=== PATIENT | female | born 1930 | race Caucasian/White ===

== ENCOUNTER 2018-10-20 15:17 | Emergency (ER) | payer MEDICARE ==
[2018-10-20 15:25] VITALS: TEMP 98.3
--- NOTE | 2018-10-20 15:44 | XR ---
EXAMINATION TYPE: XR chest 2V DATE OF EXAM: 10/20/2018 COMPARISON: 12/01/2015 TECHNIQUE: PA and lateral views submitted. HISTORY: Cough FINDINGS: The lungs are clear and there is no pneumothorax, pleural effusion, or focal pneumonia. Curvature t he spine with postsurgical changes involving the mediastinum. Degenerative changes of the spine. Surg ical clips in the abdomen. No overt failure. Arthropathy of the shoulders. Biapical pleural thickenin g. IMPRESSION: 1. No acute process.
[2018-10-20] MEDS ORDERED: IPRATROPIUM-ALBUTEROL 3 ML NEB INHALATION STA (16:26)
[2018-10-20] MEDS ORDERED: SODIUM CHLORIDE 0.9% 500 ML 500 ML IV STA ×2 (16:26→17:47)
[2018-10-20] MEDS ORDERED: methylPREDNISolone SOD SUCCI 125 MG/2 ML VIAL IV STA (16:27)
--- NOTE | 2018-10-20 16:27 | ED ---
General Adult HPI - General Chief complaint: Upper Respiratory Infection Stated complaint: Cough Time Seen by Provider: 10/20/18 16:16 Source: patient, RN notes reviewed Mode of arrival: ambulatory Limitations: no limitations - History of Present Illness Initial comments: 87-year-old female with a past medical history of hypertension, hypercholesterolemia, hypothyroidism, left bundle branch block, kidney disease presents to the emergency department for a chief complaint of cough 3 days. Patient has been having a nonproductive cough. Feels like she is wheezing. Denies COPD or asthma. Denies significant smoking history. Patient also complains of congestion. No fevers or chills. Admits to some mild chest pain only when coughing. Admits to mild baseline shortness of breath at this time. Some minor weakness noted as well but patient is getting around her house fine. Patient has no other complaints at this time including chest pain, abdominal pain, nausea or vomiting, headache, or visual changes. - Related Data Home Medications Medication Instructions Recorded Confirmed Aspirin EC [Ecotrin Low Dose] 81 mg PO DAILY 10/20/18 10/20/18 Brinzolamide/Brimonidine Tart 1 drop BOTH EYES BID 10/20/18 10/20/18 [Simbrinza 1%-0.2% Eye Drops] Etanercept [Enbrel] 50 mg SQ WESA 10/20/18 10/20/18 Lansoprazole [Prevacid] 15 mg PO DAILY 10/20/18 10/20/18 Latanoprost/Pf [Latanoprost 0.005% 1 drop BOTH EYES QAM 10/20/18 10/20/18 Eye Drop] Memantine [Namenda] 10 mg PO BID 10/20/18 10/20/18 Metoprolol Succinate [Toprol XL] 75 mg PO DAILY 10/20/18 10/20/18 Potassium Chloride [Klor-Con 10] 10 meq PO DAILY 10/20/18 10/20/18 Rosuvastatin [Crestor] 20 mg PO HS 10/20/18 10/20/18 Sertraline [Zoloft] 200 mg PO DAILY 10/20/18 10/20/18 Triamterene-Hctz 37.5-25Mg 0.5 tab PO DAILY 10/20/18 10/20/18 [Maxzide 37.5-25] Previous Rx's Medication Instructions Recorded Albuterol Inhaler [Ventolin Hfa 1 - 2 puff INHALATION Q6HR PRN #1 10/20/18 Inhaler] inhaler predniSONE 50 mg PO DAILY #5 tablet 10/20/18 Allergies Allergy/AdvReac Type Severity Reaction Status Date / Time No Known Allergies Allergy Verified 10/20/18 16:21 Review of Systems ROS Statement: Those systems with pertinent positive or pertinent negative responses have been documented in the HPI. ROS Other: All systems not noted in ROS Statement are negative. Past Medical History Past Medical History: Hypertension Additional Past Medical History / Comment(s): hypercholestremia. hypothyroidism. low potassium. dementia. History of Any Multi-Drug Resistant Organisms: None Reported Past Surgical History: Cholecystectomy, Coronary Bypass/CABG, Hysterectomy Past Psychological History: No Psychological Hx Reported Smoking Status: Never smoker Past Alcohol Use History: None Reported Past Drug Use History: None Reported General Exam Limitations: no limitations General appearance: alert, in no apparent distress Head exam: Present: atraumatic, normocephalic, normal inspection Eye exam: Present: normal appearance, PERRL, EOMI. Absent: scleral icterus, conjunctival injection, periorbital swelling ENT exam: Present: normal exam, normal oropharynx, mucous membranes moist, TM's normal bilaterally, normal external ear exam Neck exam: Present: normal inspection, full ROM. Absent: tenderness, me ningismus, lymphadenopathy Respiratory exam: Present: wheezes (Significant wheezing noted in all lung dover), chest wall tenderness (Mild anterior chest wall tenderness). Absent: respiratory distress, rales, rhonchi, stridor, accessory muscle use Cardiovascular Exam: Present: regular rate, normal rhythm, normal heart sounds. Absent: systolic murmur, diastolic murmur, rubs, gallop, clicks Neurological exam: Present: alert, oriented X3, CN II-XII intact Psychiatric exam: Present: normal affect, normal mood Course Vital Signs 10/20/18 10/20/18 10/20/18 15:19 17:52 17:58 Temperature 98.3 F Pulse Rate 81 82 Respiratory 16 16 Rate Blood Pressure 126/61 O2 Sat by Pulse 95 Oximetry 10/20/18 18:01 Temperature Pulse Rate 88 Respiratory Rate Blood Pressure O2 Sat by Pulse Oximetry Medical Decision Making - Medical Decision Making 87-year-old female presents to the emergency department for a chief complaint of cough. This has been ongoing for 3 days. Mild shortness of breath. Chest pain only when coughing. On exam patient has significant wheezing noted. Vitals are stable, pulse ox 95%. No respiratory distress. CBC unremarkable. Patient does have a platelet count of 75 which is chronic. Creatinine elevated at 1.88, history of chronic kidney disease. Troponin within normal limits. EKG does show a left bundle branch block however this is chronic as patient does have a history of this when asked. Chest x-ray shows no acute process. No evidence of pneumonia. Patient likely has a viral bronchitis. Patient was given breathing treatments and steroids in the emergency department, feeling significantly better. Discussed possibility of admission the patient is requesting to go home. Discussed that I will give her a inhaler as well as steroids and that she should follow up with primary care tomorrow for nebulizer. Discussed returning here if she has any worsening symptoms for admission which she does agree with. - Lab Data Result diagrams: 10/20/18 17:00 10/20/18 17:00 Lab Results 10/20/18 10/20/18 10/20/18 Range/Units 17:00 17:00 17:00 WBC 7.2 (3.8-10.6) k/uL RBC 4.84 (3.80-5.40) m/uL Hgb 12.9 (11.4-16.0) gm/dL Hct 42.4 (34.0-46.0) % MCV 87.6 (80.0-100.0) fL MCH 26.6 (25.0-35.0) pg MCHC 30.3 L (31.0-37.0) g/dL RDW 15.2 (11.5-15.5) % Plt Count 75 L (150-450) k/uL Neutrophils % 81 % Lymphocytes % 11 % Monocytes % 5 % Eosinophils % 1 % Basophils % 0 % Neutrophils # 5.8 (1.3-7.7) k/uL Lymphocytes # 0.8 L (1.0-4.8) k/uL Monocytes # 0.4 (0-1.0) k/uL Eosinophils # 0.1 (0-0.7) k/uL Basophils # 0.0 (0-0.2) k/uL Hypochromasia Slight Sodium 141 (137-145) mmol/L Potassium 3.8 (3.5-5.1) mmol/L Chloride 105 (98-107) mmol/L Carbon Dioxide 24 (22-30) mmol/L Anion Gap 12 mmol/L BUN 33 H (7-17) mg/dL Creatinine 1.88 H (0.52-1.04) mg/dL Est GFR (CKD-EPI)AfAm 27 (>60 ml/min/1.73 sqM) Est GFR (CKD-EPI)NonAf 24 (>60 ml/min/1.73 sqM) Glucose 109 H (74-99) mg/dL Calcium 9.5 (8.4-10.2) mg/dL Magnesium 1.9 (1.6-2.3) mg/dL Total Bilirubin 0.9 (0.2-1.3) mg/dL AST 44 H (14-36) U/L ALT 27 (9-52) U/L Alkaline Phosphatase 94 (38-126) U/L Troponin I 0.019 (0.000-0.034) ng/mL Total Protein 7.8 (6.3-8.2) g/dL Albumin 4.5 (3.5-5.0) g/dL Disposition Clinical Impression: Cough, Bronchitis Disposition: HOME SELF-CARE Condition: Good Instructions (If sedation given, give patient instructions): Acute Bronchitis (ED) Additional Instructions: Please take steroid as directed. Use inhaler. Follow up with primary care in 1-2 days for nebulizer. Return here for any worsening symptoms or worsening shortness of breath. Prescriptions: predniSONE 50 mg PO DAILY #5 tablet Albuterol Inhaler [Ventolin Hfa Inhaler] 1 - 2 puff INHALATION Q6HR PRN #1 inhaler PRN Reason: Shortness Of Breath Is patient prescribed a controlled substance at d/c from ED?: No Referrals: Sarath Verma MD [Primary Care Provider] - 1-2 days Time of Disposition: 18:38
[2018-10-20 17:25] LABS: Basophils % (A) 0 %; Eosinophils # (A) 0.1 k/uL (0-0.7); Eosinophils % (A) 1 %; HCT 42.4 % (34.0-46.0); HGB 12.9 gm/dL (11.4-16.0); Hypochromasia Slight; Lymphocytes # (A) 0.8 k/uL (1.0-4.8); Lymphocytes % (A) 11 %; MCH 26.6 pg (25.0-35.0); MCHC 30.3 g/dL (31.0-37.0); MCV 87.6 fL (80.0-100.0); Mean Platelet Volume 10.6; Monocytes # (A) 0.4 k/uL (0-1.0); Monocytes % (A) 5 %; Neutrophils # (A) 5.8 k/uL (1.3-7.7); Neutrophils % (A) 81 %; Platelet Count 75 k/uL (150-450); RBC 4.84 m/uL (3.80-5.40); RDW 15.2 % (11.5-15.5); WBC 7.2 k/uL (3.8-10.6)
[2018-10-20 17:30] LABS: Albumin 4.5 g/dL (3.5-5.0); Calcium 9.5 mg/dL (8.4-10.2); Magnesium 1.9 mg/dL (1.6-2.3); Potassium 3.8 mmol/L (3.5-5.1); Total Bilirubin 0.9 mg/dL (0.2-1.3); Total Protein 7.8 g/dL (6.3-8.2)
[2018-10-20] MEDS ORDERED: ALBUTEROL NEB (CONC) 2.5 MG/0.5 ML INHALATION STA (17:42)
[2018-10-20 19:16] VITALS: BP 144/66; PULSE 73; RESP 18
== END 2018-10-20 19:14 | disposition home or self-care (01) ==
LOC: EC 15:17
DX: J40 Bronchitis, not specified as acute or chronic (principal); I44.7 Left bundle-branch block, unspecified; I10 Essential (primary) hypertension; Z79.82 Long term (current) use of aspirin; Z79.899 Other long term (current) drug therapy; Z95.1 Presence of aortocoronary bypass graft
CPT/HCPCS: 36415; 94640; 93005; 80053; 83735; 84484; 85025; 71046; 99284; 96374; J2930

== ENCOUNTER 2018-10-25 13:08 | Inpatient (IN) | payer MEDICARE ==
[2018-10-25] MEDS ORDERED: SODIUM CHLORIDE 0.9% 500 ML 500 ML IV STA (14:18)
[2018-10-25] MEDS ORDERED: SODIUM CHLORIDE 0.9% 1,000 ML IV STA (14:18)
--- NOTE | 2018-10-25 14:23 | ED ---
General Adult HPI - General Chief complaint: Fall Stated complaint: Fall Time Seen by Provider: 10/25/18 14:03 Source: patient, family, EMS, RN notes reviewed Mode of arrival: EMS Limitations: no limitations - History of Present Illness Initial comments: Patient is a pleasant 87-year-old female presenting to the emergency department following a fall. Incident occurred yesterday evening. Patient states she lost her balance and fell. Patient was unable to get up on her own. Family is present and helps provide history. They do state the patient does frequently have balance problems and does frequently have problems getting up on her own. Patient was lying on the ground for approximately 13 hours. Last oral intake was around 6:30 PM yesterday. Patient denies any significant injury. Patient has had recent cough and was seen a couple of days ago and diagnosed with bronchitis. Patient has been placed on steroids. Patient denies any head injury or loss of consciousness. Patient denies syncope despite being asked several times. Family members are not as confident About This. - Related Data Home Medications Medication Instructions Recorded Confirmed Aspirin EC [Ecotrin Low Dose] 81 mg PO DAILY 10/20/18 10/25/18 Brinzolamide/Brimonidine Tart 1 drop BOTH EYES BID 10/20/18 10/25/18 [Simbrinza 1%-0.2% Eye Drops] Etanercept [Enbrel] 50 mg SQ WESA 10/20/18 10/25/18 Lansoprazole [Prevacid] 15 mg PO DAILY 10/20/18 10/25/18 Latanoprost/Pf [Latanoprost 0.005% 1 drop BOTH EYES QAM 10/20/18 10/25/18 Eye Drop] Memantine [Namenda] 10 mg PO BID 10/20/18 10/25/18 Metoprolol Succinate [Toprol XL] 75 mg PO DAILY 10/20/18 10/25/18 Potassium Chloride [Klor-Con 10] 10 meq PO DAILY 10/20/18 10/25/18 Rosuvastatin [Crestor] 20 mg PO HS 10/20/18 10/25/18 Sertraline [Zoloft] 200 mg PO DAILY 10/20/18 10/25/18 Triamterene-Hctz 37.5-25Mg 0.5 tab PO DAILY 10/20/18 10/25/18 [Maxzide 37.5-25] Albuterol Inhaler [Ventolin Hfa 1 - 2 puff INHALATION RT-Q6H PRN 10/25/18 10/25/18 Inhaler] Previous Rx's Medication Instructions Recorded predniSONE 50 mg PO DAILY #5 tablet 10/20/18 Allergies Allergy/AdvReac Type Severity Reaction Status Date / Time Iodinated Contrast- Oral and Allergy Dyspnea Verified 10/25/18 13:51 IV Dye acetaminophen AdvReac Unknown Verified 10/25/18 13:51 [From Darvocet-N] cephalexin [From Keflex] AdvReac Unknown Verified 10/25/18 13:51 latex AdvReac Rash/Hives Verified 10/25/18 13:51 propoxyphene AdvReac Unknown Verified 10/25/18 13:51 [From Darvocet-N] Review of Systems ROS Statement: Those systems with pertinent positive or pertinent negative responses have been documented in the HPI. ROS Other: All systems not noted in ROS Statement are negative. Constitutional: Denies: fever Eyes: Denies: eye pain ENT: Denies: ear pain Respiratory: Denies: cough Cardiovascular: Denies: chest pain Endocrine: Reports: fatigue Gastrointestinal: Denies: abdominal pain Genitourinary: Denies: dysuria Musculoskeletal: Denies: back pain Skin: Denies: rash Neurological: Denies: headache, weakness Past Medical History Past Medical History: Hypertension Additional Past Medical History / Comment(s): hypercholestremia. hypothyroidism. low potassium. dementia. History of Any Multi-Drug Resistant Organisms: None Reported Past Surgical History: Cholecystectomy, Coronary Bypass/CABG, Hysterectomy Past Psychological History: No Psychological Hx Reported Smoking Status: Never smoker Past Alcohol Use History: None Reported Past Drug Use History: None Reported General Exam Limitations: no limitations General appearance: alert, in no apparent distress Head exam: Present: atraumatic Eye exam: Present: normal appearance, PERRL ENT exam: Present: normal oropharynx Neck exam: Present: normal inspection. Absent: tenderness Respiratory exam: Present: normal lung sounds bilaterally Cardiovascular Exam: Present: regular rate, normal rhythm Expanded Peripheral pulses: 2+: Radial (R), Radial (L) GI/Abdominal exam: Present: soft. Absent: distended, tenderness Extremities exam: Present: full ROM, tenderness (Mild tenderness left lateral hip. No discomfort with range of motion.) Neurological exam: Present: alert, oriented X3, CN II-XII intact. Absent: motor sensory deficit Expanded Neurological exam: Present: protecting the airway Patient oriented to: Present: person, place. Absent: time (Patient is oriented to month however states the year is 2016.) Speech: Present: fluid speech Cranial nerves: EOM's Intact: Normal Motor strength exam: RUE: 5, LUE: 5, RLE: 5, LLE: 5 Psychiatric exam: Present: normal affect, normal mood Skin exam: Present: normal color Course Vital Signs 10/25/18 13:11 Temperature 98 F Pulse Rate 60 Respiratory 18 Rate Blood Pressure 156/56 O2 Sat by Pulse 97 Oximetry EKG Findings - EKG Comments: EKG Findings:: Sinus bradycardia 58. NH 142. QRS 150. QT 474. QTC 465. Left axis. Left bundle branch block. No acute ST change. Medical Decision Making - Medical Decision Making Patient reevaluated and resting comfortably in bed. Patient and family updated on results. Patient is unable to get up and walk around despite using a walker. Case was discussed in detail with Dr. Louis, who will admit covered for Dr. nguyen - Lab Data Result diagrams: 10/25/18 14:50 10/25/18 14:50 Lab Results 10/25/18 10/25/18 10/25/18 Range/Units 14:50 14:50 14:50 WBC 10.5 (3.8-10.6) k/uL RBC 4.30 (3.80-5.40) m/uL Hgb 11.4 (11.4-16.0) gm/dL Hct 36.9 (34.0-46.0) % MCV 85.9 (80.0-100.0) fL MCH 26.6 (25.0-35.0) pg MCHC 31.0 (31.0-37.0) g/dL RDW 14.4 (11.5-15.5) % Plt Count 111 L (150-450) k/uL Neutrophils % 88 % Lymphocytes % 6 % Monocytes % 4 % Eosinophils % 1 % Basophils % 0 % Neutrophils # 9.2 H (1.3-7.7) k/uL Lymphocytes # 0.7 L (1.0-4.8) k/uL Monocytes # 0.4 (0-1.0) k/uL Eosinophils # 0.1 (0-0.7) k/uL Basophils # 0.0 (0-0.2) k/uL Hypochromasia Slight PT 10.5 (9.0-12.0) sec INR 1.0 (<1.2) APTT 23.2 (22.0-30.0) sec Sodium 140 (137-145) mmol/L Potassium 3.7 (3.5-5.1) mmol/L Chloride 101 (98-107) mmol/L Carbon Dioxide 25 (22-30) mmol/L Anion Gap 14 mmol/L BUN 43 H (7-17) mg/dL Creatinine 1.70 H (0.52-1.04) mg/dL Est GFR (CKD-EPI)AfAm 31 (>60 ml/min/1.73 sqM) Est GFR (CKD-EPI)NonAf 27 (>60 ml/min/1.73 sqM) Glucose 133 H (74-99) mg/dL Calcium 9.5 (8.4-10.2) mg/dL Magnesium 1.9 (1.6-2.3) mg/dL Total Bilirubin 1.0 (0.2-1.3) mg/dL AST 40 H (14-36) U/L ALT 37 (9-52) U/L Alkaline Phosphatase 113 (38-126) U/L Creatine Kinase 593 H (30-135) U/L Troponin I (0.000-0.034) ng/mL Total Protein 7.2 (6.3-8.2) g/dL Albumin 4.1 (3.5-5.0) g/dL TSH 3.540 (0.465-4.680) mIU/L Free T4 1.17 (0.78-2.19) ng/dL Free T3 pg/mL 5.9 H (2.8-5.3) pg/ml 10/25/18 Range/Units 14:50 WBC (3.8-10.6) k/uL RBC (3.80-5.40) m/uL Hgb (11.4-16.0) gm/dL Hct (34.0-46.0) % MCV (80.0-100.0) fL MCH (25.0-35.0) pg MCHC (31.0-37.0) g/dL RDW (11.5-15.5) % Plt Count (150-450) k/uL Neutrophils % % Lymphocytes % % Monocytes % % Eosinophils % % Basophils % % Neutrophils # (1.3-7.7) k/uL Lymphocytes # (1.0-4.8) k/uL Monocytes # (0-1.0) k/uL Eosinophils # (0-0.7) k/uL Basophils # (0-0.2) k/uL Hypochromasia PT (9.0-12.0) sec INR (<1.2) APTT (22.0-30.0) sec Sodium (137-145) mmol/L Potassium (3.5-5.1) mmol/L Chloride (98-107) mmol/L Carbon Dioxide (22-30) mmol/L Anion Gap mmol/L BUN (7-17) mg/dL Creatinine (0.52-1.04) mg/dL Est GFR (CKD-EPI)AfAm (>60 ml/min/1.73 sqM) Est GFR (CKD-EPI)NonAf (>60 ml/min/1.73 sqM) Glucose (74-99) mg/dL Calcium (8.4-10.2) mg/dL Magnesium (1.6-2.3) mg/dL Total Bilirubin (0.2-1.3) mg/dL AST (14-36) U/L ALT (9-52) U/L Alkaline Phosphatase (38-126) U/L Creatine Kinase (30-135) U/L Troponin I 0.026 (0.000-0.034) ng/mL Total Protein (6.3-8.2) g/dL Albumin (3.5-5.0) g/dL TSH (0.465-4.680) mIU/L Free T4 (0.78-2.19) ng/dL Free T3 pg/mL (2.8-5.3) pg/ml - Radiology Data Radiology results: report reviewed (Computed tomography scan of the brain reveals no acute process), image reviewed (Chest and pelvis x-rays show no acute process) Disposition Clinical Impression: Fall, Bronchitis, General weakness, Pre-syncope Disposition: ADMITTED IP TO THIS HOSP Is patient prescribed a controlled substance at d/c from ED?: No Referrals: Sarath Nguyen MD [Primary Care Provider] - 1-2 days Decision Time: 16:58
[2018-10-25 15:05] LABS: Basophils % (A) 0 %; Eosinophils # (A) 0.1 k/uL (0-0.7); Eosinophils % (A) 1 %; HCT 36.9 % (34.0-46.0); HGB 11.4 gm/dL (11.4-16.0); Hypochromasia Slight; Lymphocytes # (A) 0.7 k/uL (1.0-4.8); Lymphocytes % (A) 6 %; MCH 26.6 pg (25.0-35.0); MCV 85.9 fL (80.0-100.0); Mean Platelet Volume 9.2; Monocytes # (A) 0.4 k/uL (0-1.0); Monocytes % (A) 4 %; Neutrophils # (A) 9.2 k/uL (1.3-7.7); Neutrophils % (A) 88 %; Platelet Count 111 k/uL (150-450); RDW 14.4 % (11.5-15.5); WBC 10.5 k/uL (3.8-10.6)
--- NOTE | 2018-10-25 15:06 | CT ---
EXAMINATION TYPE: CT brain wo con DATE OF EXAM: 10/25/2018 COMPARISON: None HISTORY: Weakness and fall. CT DLP: 1099.4 mGycm Automated exposure control for dose reduction was used. FINDINGS: There is diffuse cerebral cortical atrophy. There is no mass effect nor midline shift. There is no si gn of intracranial hemorrhage. There is mild enlargement of the ventricles. Calvarium is intact. IMPRESSION: CEREBRAL ATROPHY. NO ACUTE INTRACRANIAL ABNORMALITY.
--- NOTE | 2018-10-25 15:08 | XR ---
EXAMINATION TYPE: XR chest 2V DATE OF EXAM: 10/25/2018 COMPARISON: 10/20/2018 HISTORY: Weakness TECHNIQUE: Frontal and lateral views of the chest are obtained. FINDINGS: There is no heart failure nor confluent pneumonic infiltrate. There are sternal wires. Cos tophrenic angles are clear. The bony thorax is intact. IMPRESSION: No active cardiopulmonary disease. Normal heart. No change.
[2018-10-25 15:13] LABS: Partial Thromboplastin Time 23.2 sec (22.0-30.0); Prothrombin Time 10.5 sec (9.0-12.0)
[2018-10-25 15:14] LABS: Albumin 4.1 g/dL (3.5-5.0); Calcium 9.5 mg/dL (8.4-10.2); Magnesium 1.9 mg/dL (1.6-2.3); Potassium 3.7 mmol/L (3.5-5.1); Total Protein 7.2 g/dL (6.3-8.2)
[2018-10-25] MEDS ORDERED: SODIUM CHLORIDE 0.9% 250 ML IV STA (15:26)
[2018-10-25 15:30] LABS: T4, Free (Free Thyroxine) 1.17 ng/dL (0.78-2.19)
--- NOTE | 2018-10-25 15:50 | XR ---
EXAMINATION TYPE: XR pelvis AP view DATE OF EXAM: 10/25/2018 COMPARISON: NONE HISTORY: Pain TECHNIQUE: Single view FINDINGS: Pelvic ring is intact. Proximal femurs and hip joints are intact. Sacroiliac joints appear normal. There are phleboliths in the pelvis. IMPRESSION: Normal pelvis.
[2018-10-25] MEDS ORDERED: NALOXONE 0.4 MG/ML 1 ML VIAL IV PRN (16:59)
[2018-10-25] MEDS ORDERED: LOPERAMIDE 2 MG CAP PO PRN (18:28)
[2018-10-25] MEDS ORDERED: HYDROcodone/APAP 5-325MG 1 EACH TAB PO PRN (18:30)
--- NOTE | 2018-10-25 18:32 | P.HPIM ---
History of Present Illness H&P Date: 10/25/18 Chief Complaint: Fall, weakness, cough 87-year-old female with PMH of hypertension, hypothyroidism, hyperlipidemia, CAD post CABG, rheumatoid arthritis presents to the ED after a fall. Sister is at bedside providing some of the history. Patient states that on Friday she came to the ED for cough. Chest x-ray was obtained which was negative for pneumonia, patient was diagnosed with acute bronchitis and was discharged with a course of steroids. Patient reports that she has been progressively feeling weak since then. Patient states that yesterday night she got up to change the TV when her knees buckled and she went down. Sister reports that the patient spent the night on the floor. Patient denied any loss of consciousness but did report that she hit the back of her head. Patient currently complains of a headache that is frontal, described as bandlike and at the back where she hit her head. She denies any lower extremity edema, nausea, vomiting, fever. Patient reports a wet cough that has been ongoing for the past week. Patient reports chest pain and shortness of breath but only when she coughs. Patient denies any changes in urination but endorses chronic diarrhea that has been an ongoing problem. Patient reports a decreased appetite. She denies any dizziness, numbness/weakness/tingling of the extremities. In the ED, vital signs were stable. CBC showed a low platelet count of 111. Coagulation panel was negative. CMP showed a BUN of 43, creatinine of 1.70, glucose of 133, AST of 40. Creatinine kinase was elevated at 593. Troponin was 0.026. Chest x-ray was negative. CT head shows no acute intracranial abnormality. Pelvic x-ray was negative. Patient is admitted for generalized weakness after a fall, physical therapy will be consulted. Review of Systems Pertinent positives and negatives as discussed in HPI, a complete review of systems was performed and all other systems are negative. Past Medical History Past Medical History: Hypertension Additional Past Medical History / Comment(s): hypercholestremia. hypothyroidism. low potassium. dementia. History of Any Multi-Drug Resistant Organisms: None Reported Past Surgical History: Cholecystectomy, Coronary Bypass/CABG, Hysterectomy Past Psychological History: No Psychological Hx Reported Smoking Status: Never smoker Past Alcohol Use History: None Reported Past Drug Use History: None Reported Medications and Allergies Home Medications Medication Instructions Recorded Confirmed Type Aspirin EC [Ecotrin Low Dose] 81 mg PO DAILY 10/20/18 10/25/18 History Brinzolamide/Brimonidine Tart 1 drop BOTH EYES BID 10/20/18 10/25/18 History [Simbrinza 1%-0.2% Eye Drops] Etanercept [Enbrel] 50 mg SQ WESA 10/20/18 10/25/18 History Lansoprazole [Prevacid] 15 mg PO DAILY 10/20/18 10/25/18 History Latanoprost/Pf [Latanoprost 0.005% 1 drop BOTH EYES QAM 10/20/18 10/25/18 History Eye Drop] Memantine [Namenda] 10 mg PO BID 10/20/18 10/25/18 History Metoprolol Succinate [Toprol XL] 75 mg PO DAILY 10/20/18 10/25/18 History Potassium Chloride [Klor-Con 10] 10 meq PO DAILY 10/20/18 10/25/18 History Rosuvastatin [Crestor] 20 mg PO HS 10/20/18 10/25/18 History Sertraline [Zoloft] 200 mg PO DAILY 10/20/18 10/25/18 History Triamterene-Hctz 37.5-25Mg 0.5 tab PO DAILY 10/20/18 10/25/18 History [Maxzide 37.5-25] predniSONE 50 mg PO DAILY #5 tablet 10/20/18 10/25/18 Rx Albuterol Inhaler [Ventolin Hfa 1 - 2 puff INHALATION RT-Q6H PRN 10/25/18 10/25/18 History Inhaler] Allergies Allergy/AdvReac Type Severity Reaction Status Date / Time Iodinated Contrast- Oral and Allergy Dyspnea Verified 10/25/18 13:51 IV Dye acetaminophen AdvReac Unknown Verified 10/25/18 13:51 [From Darvocet-N] cephalexin [From Keflex] AdvReac Unknown Verified 10/25/18 13:51 latex AdvReac Rash/Hives Verified 10/25/18 13:51 propoxyphene AdvReac Unknown Verified 10/25/18 13:51 [From Darvocet-N] Physical Exam Vitals: Vital Signs Temp Pulse Resp BP Pulse Ox 10/25/18 17:22 89 18 127/82 97 10/25/18 13:11 98 F 60 18 156/56 97 Intake and Output 10/25/18 10/25/18 10/25/18 06:59 14:59 22:59 Other: Weight 72.575 kg General: [non toxic], [no distress], [appears at stated age], [appears pale] Derm: [warm], [dry], [ecchymotic bruising over various parts of the body likely from the fall] Head: [atraumatic], [normocephalic], [symmetric] Eyes: [EOMI], [no lid lag], [anicteric sclera] Mouth: [no lip lesion], [mucus membranes moist] Cardiovascular: [S1S2 reg], [no murmur], [positive DP pulse bilateral] Lungs: [CTA bilateral], [no rhonchi, no rales] , [no accessory muscle use] Abdominal: [soft], [ nontender to palpation], [no guarding], [no appreciable organomegaly] Ext: [no gross muscle atrophy], [no edema], [no contractures] Neuro: [ CN II-XI grossly intact], [no focal neuro deficits] Psych: [Alert], [oriented], [appropriate affect] Results CBC & Chem 7: 10/25/18 14:50 10/25/18 14:50 Labs: Abnormal Lab Results - Last 24 Hours (Table) 10/25/18 10/25/18 Range/Units 14:50 14:50 Plt Count 111 L (150-450) k/uL Neutrophils # 9.2 H (1.3-7.7) k/uL Lymphocytes # 0.7 L (1.0-4.8) k/uL BUN 43 H (7-17) mg/dL Creatinine 1.70 H (0.52-1.04) mg/dL Glucose 133 H (74-99) mg/dL AST 40 H (14-36) U/L Creatine Kinase 593 H (30-135) U/L Free T3 pg/mL 5.9 H (2.8-5.3) pg/ml Thrombosis Risk Factor Assmnt - Choose All That Apply Each Factor Represents 1 point: Obesity (BMI >25) Each Risk Factor Represents 3 Points: Age 75 years or older Thrombosis Risk Factor Assessment Total Risk Factor Score: 4 Thrombosis Risk Factor Assessment Level: Moderate Risk Assessment and Plan Assessment: Assessment and Plan Fall with generalized weakness and debility Elevated CPK Acute kidney injury Cough likely secondary to acute bronchitis Headache, possible sinusitis versus ALLERGIC rhinitis Chronic diarrhea Hypertension CAD post CABG Rheumatoid arthritis Glaucoma Dementia Patient with fall, states that knees buckled. Complains of generalized weakness over the past week. CT brain negative. Pelvic x-ray negative. Plans: Fall pr ecautions. Follow physical therapy consultation. Social work consulted as patient lives alone. CPK 593. Likely secondary to fall. Plans: Continue normal saline at 75 mL per hour. Daily BMP to monitor renal function. Repeat CPK in the morning. BUN 43, creatinine 1.70. Likely secondary to dehydration. Plans: Continue normal saline as above. Daily BMP. Patient is afebrile with no leukocytosis. Chest x-ray is negative. Plans: Started 5 day course of steroids with no improvement. Will start Augmentin to cover possible bacterial bronchitis Tenderness to palpation over the frontal maxillary sinus with history of seasonal ALLERGIES. Plans: Start Augmentin to cover for sinusitis. Start Mucinex. Chronic in nature. Plans: Imodium as needed. Will need adequate follow-up in the outpatient setting. BP 127/82. Plans: Continue metoprolol. Monitor vitals, adjust medications as n ecessary. Stable. Plans: Continue aspirin. Will not start statin drug due to elevated CPK. Sister reports that patient missed shot of Enbrel on Friday. Plans: Follow physical therapy consultation. Advised sister to bring in Enbrel so we can administer the medication here. Stable. Plans: Continue eyedrops as part of home medication. Stable. Plans: Continue memantine. Frequent redirection. Window side bed if possible. Avoid restraints. Patient names her sister Nickie decision-maker in the case that she can't make decisions for herself. Patient states that she would like to be DO NOT RESUSCITATE and DO NOT INTUBATE. DVT prophylaxis: [SCD boots] Discussed with: [Patient and sister] Anticipated discharge: [Home versus rehab] Anticipated discharge place: [1-2 days] A total of [45] minutes was spent on the care of this complex patient more than 50% of the time was spent in counseling and care coordination.
[2018-10-25] MEDS: LATANOPROST 0.005% OPHTH DROPS 2.5 ML BTL BOTH EYES SCH (20:10)
[2018-10-25] MEDS: DORZOLAMIDE HCL 2% DROPS 10 ML BTL BOTH EYES SCH (20:10)
[2018-10-25] MEDS: AMOXIC-POT CLAV 875-125MG 1 EACH TAB PO SCH (20:10)
[2018-10-25] MEDS: guaiFENesin 600 MG TABLET.ER PO SCH (20:10)
[2018-10-25] MEDS: MEMANTINE 10 MG TAB PO SCH (20:10)
[2018-10-25] MEDS: BRIMONIDINE TARTRATE 0.2% DROPS 5 ML BTL BOTH EYES SCH (20:11)
[2018-10-25] MEDS: SODIUM CHLORIDE 0.9% 1,000 ML IV SCH (20:12)
[2018-10-25] MEDS ORDERED: NON-FORMULARY DRUG (Brinzolamide/Brimonidine Tart [Simbrinza 1%-0.2% Eye Drops] 1 DROP) BOTH EYES SCH (21:00)
[2018-10-25] MEDS ORDERED: NON-FORMULARY DRUG (Rosuvastatin 20 MG) PO SCH (21:00)
[2018-10-26] MEDS: IPRATROPIUM-ALBUTEROL 3 ML NEB INHALATION PRN ×3 (08:43→21:49)
[2018-10-26 09:00] LABS: Albumin 3.2 g/dL (3.5-5.0); Calcium 8.6 mg/dL (8.4-10.2); Potassium 3.3 mmol/L (3.5-5.1); Total Bilirubin 0.9 mg/dL (0.2-1.3)
[2018-10-26 09:02] LABS: Basophils % (A) 0 %; Eosinophils % (A) 1 %; HCT 33.3 % (34.0-46.0); HGB 10.4 gm/dL (11.4-16.0); Hypochromasia Moderate; Lymphocytes # (A) 0.7 k/uL (1.0-4.8); Lymphocytes % (A) 8 %; MCHC 31.1 g/dL (31.0-37.0); MCV 86.6 fL (80.0-100.0); Mean Platelet Volume 10.2; Monocytes # (A) 0.7 k/uL (0-1.0); Monocytes % (A) 7 %; Neutrophils # (A) 7.7 k/uL (1.3-7.7); Neutrophils % (A) 84 %; Platelet Count 100 k/uL (150-450); RBC 3.84 m/uL (3.80-5.40); RDW 14.7 % (11.5-15.5); WBC 9.3 k/uL (3.8-10.6)
[2018-10-26] MEDS: BRIMONIDINE TARTRATE 0.2% DROPS 5 ML BTL BOTH EYES SCH ×2 (09:20→21:25)
[2018-10-26] MEDS: ASPIRIN 81 MG PO SCH (09:22)
[2018-10-26] MEDS: PANTOPRAZOLE 40 MG TABLET PO SCH (09:22)
[2018-10-26] MEDS: MEMANTINE 10 MG TAB PO SCH ×2 (09:22→21:25)
[2018-10-26] MEDS: SERTRALINE 100 MG TAB PO SCH (09:22)
[2018-10-26] MEDS: METOPROLOL SUCCINATE (ER) 25 MG TAB.ER.24H PO SCH ×4 (09:22→21:26)
[2018-10-26] MEDS: guaiFENesin 600 MG TABLET.ER PO SCH ×2 (09:22→21:24)
[2018-10-26] MEDS: AMOXIC-POT CLAV 875-125MG 1 EACH TAB PO SCH ×2 (09:23→21:24)
[2018-10-26] MEDS: DORZOLAMIDE HCL 2% DROPS 10 ML BTL BOTH EYES SCH ×2 (09:29→21:25)
[2018-10-26] MEDS: SODIUM CHLORIDE 0.9% 1,000 ML IV SCH ×2 (09:37→21:27)
[2018-10-26] MEDS: ACETAMINOPHEN TAB 325 MG TAB PO PRN ×2 (09:45→19:20)
[2018-10-26] MEDS ORDERED: POTASSIUM CHLORIDE ER 20 MEQ TAB.ER PO STA (11:48)
--- NOTE | 2018-10-26 15:31 | P.PN ---
Subjective Progress Note Date: 10/26/18 Principal diagnosis: Debility Patient seen and examined. No acute events overnight. Patient reports no complaints today. Denies any chest pain, shortness of breath or palpitations. She denies any dysuria. States that she was able to work with physical therapy with some difficulty. Agreeable for rehab. Objective - Vital Signs Vital signs: Vital Signs Temp 98.2 F 10/26/18 08:00 Pulse 72 10/26/18 12:25 Resp 20 10/26/18 08:00 BP 132/65 10/26/18 08:00 Pulse Ox 98 10/26/18 08:00 Intake & Output 10/25/18 10/26/18 10/26/18 18:59 06:59 18:59 Intake Total 825 462 Balance 825 462 Weight 72.575 kg Intake: Intake, IV Titration 825 Amount Sodium Chloride 0.9% 1, 825 000 ml @ 75 mls/hr IV . [id number] [facility] Rx#:[id number] Oral 462 Other: Voiding Method Incontinent # Voids 2 - Exam General: [non toxic], [no distress], [appears at stated age], [appears pale] Derm: [warm], [dry], [ecchymotic bruising over various parts of the body likely from the fall] Head: [atraumatic], [normocephalic], [symmetric] Eyes: [EOMI], [no lid lag], [anicteric sclera] Mouth: [no lip lesion], [mucus membranes moist] Cardiovascular: [S1S2 reg], [no murmur], [positive DP pulse bilateral] Lungs: [CTA bilateral], [no rhonchi, no rales] , [no accessory muscle use] Abdominal: [soft], [ nontender to palpation], [no guarding], [no appreciable organomegaly] Ext: [no gross muscle atrophy], [no edema], [no contractures] Neuro: [no focal neuro deficits] Psych: [Alert], [oriented], [appropriate affect] - Labs CBC & Chem 7: 10/26/18 07:33 10/26/18 07:33 Labs: Abnormal Lab Results - Last 24 Hours (Table) 06/23/19 06/24/19 06/24/19 Range/Units 14:50 07:33 07:33 Hgb 10.4 L (11.4-16.0) gm/dL Hct 33.3 L (34.0-46.0) % Plt Count 100 L (150-450) k/uL Lymphocytes # 0.7 L (1.0-4.8) k/uL Potassium 3.3 L (3.5-5.1) mmol/L BUN 34 H (7-17) mg/dL Creatinine 1.61 H (0.52-1.04) mg/dL Glucose 111 H (74-99) mg/dL Creatine Kinase 255 H (30-135) U/L Total Protein 6.0 L (6.3-8.2) g/dL Albumin 3.2 L (3.5-5.0) g/dL Free T3 pg/mL 5.9 H (2.8-5.3) pg/ml Assessment and Plan Assessment: Assessment and Plan Fall with generalized weakness and debility Elevated CPK Acute kidney injury Cough likely secondary to acute bronchitis Headache, possible sinusitis versus ALLERGIC rhinitis Chronic diarrhea Hypertension CAD post CABG Rheumatoid arthritis Glaucoma Dementia Patient with fall, states that knees buckled. Complains of generalized weakness over the past week. CT brain negative. Pelvic x-ray negative. Plans: Fall precautions. Social work consulted, plans for [facility]. Follow PT consultation. CPK 593-255. Likely secondary to fall. Plans: Continue normal saline at 75 mL per hour. Daily BMP to monitor renal function. BUN 43, creatinine 1.70-1.61. Likely secondary to dehydration. Plans: Continue normal saline as above. Daily BMP. Patient is afebrile with no leukocytosis. Chest x-ray is negative. Plans: Started 5 day course of steroids with no improvement. Will start Augmentin to cover possible bacterial bronchitis Tenderness to palpation over the frontal maxillary sinus with history of seasonal ALLERGIES. Plans: Start Augmentin to cover for sinusitis. Start Mucinex. Chronic in nature. Plans: Imodium as needed. Will need adequate follow-up in the outpatient setting. BP 132/67. Plans: Continue metoprolol. Monitor vitals, adjust medications as necessary. Stable. Plans: Continue aspirin. Will not start statin drug due to elevated C PK. Sister reports that patient missed shot of Enbrel on Friday. Plans: Follow physical therapy consultation. Advised sister to bring in Enbrel so we can administer the medication here. Stable. Plans: Continue eyedrops as part of home medication. Stable. Plans: Continue memantine. Frequent redirection. Window side bed if possible. Avoid restraints. Patient names her sister Nickie decision-maker in the case that she can't make decisions for herself. Patient states that she would like to be DO NOT RESUSCITATE and DO NOT INTUBATE. Plans for [facility]. Social work is consulted. DC when accepted, prior authorization required.
[2018-10-26] MEDS ORDERED: METOPROLOL SUCCINATE (ER) 25 MG TAB.ER.24H PO SCH (21:00)
[2018-10-26] MEDS: LATANOPROST 0.005% OPHTH DROPS 2.5 ML BTL BOTH EYES SCH (21:23)
[2018-10-27] MEDS: IPRATROPIUM-ALBUTEROL 3 ML NEB INHALATION PRN ×2 (07:15→11:20)
[2018-10-27] MEDS: PANTOPRAZOLE 40 MG TABLET PO SCH (08:26)
[2018-10-27] MEDS: MEMANTINE 10 MG TAB PO SCH ×2 (08:26→20:10)
[2018-10-27] MEDS: guaiFENesin 600 MG TABLET.ER PO SCH ×2 (08:26→20:10)
[2018-10-27] MEDS: ASPIRIN 81 MG PO SCH (08:26)
[2018-10-27] MEDS: METOPROLOL SUCCINATE (ER) 25 MG TAB.ER.24H PO SCH ×2 (08:27→20:11)
[2018-10-27] MEDS: SERTRALINE 100 MG TAB PO SCH (08:28)
[2018-10-27] MEDS: BRIMONIDINE TARTRATE 0.2% DROPS 5 ML BTL BOTH EYES SCH ×2 (08:29→20:13)
[2018-10-27] MEDS: DORZOLAMIDE HCL 2% DROPS 10 ML BTL BOTH EYES SCH ×2 (08:29→20:12)
[2018-10-27] MEDS: AMOXIC-POT CLAV 875-125MG 1 EACH TAB PO SCH ×2 (08:30→20:10)
[2018-10-27] MEDS: SODIUM CHLORIDE 0.9% 1,000 ML IV SCH ×2 (10:32→20:08)
[2018-10-27] MEDS: IPRATROPIUM-ALBUTEROL 3 ML NEB INHALATION SCH ×4 (11:32→22:59)
--- NOTE | 2018-10-27 12:33 | P.PN ---
Subjective Progress Note Date: 10/27/18 Principal diagnosis: fatigue Patient was seen and examined. No acute events overnight. Patient reports some pain in her left shoulder that is chronic. She complains of generalized weakness. She denies any chest pain, shortness of breath or palpitations. Fu agreeable for rehab. Objective - Vital Signs Vital signs: Vital Signs Temp 99 F 10/27/18 07:00 Pulse 72 10/27/18 11:34 Resp 32 H 10/27/18 10:27 BP 167/68 10/27/18 07:00 Pulse Ox 98 10/27/18 07:00 Intake & Output 10/26/18 10/27/18 10/27/18 18:59 06:59 18:59 Intake Total 684 900 Balance 684 900 Intake: Intake, IV Titration 900 Amount Sodium Chloride 0.9% 1, 900 000 ml @ 75 mls/hr IV . [id number] [facility] Rx#:[id number] Oral 684 Other: Voiding Method Incontinent Incontinent Diaper Incontinent # Voids 2 - Exam General: [non toxic], [no distress], [appears at stated age], [appears pale] Derm: [warm], [dry], [ecchymotic bruising over various parts of the body likely from the fall] Head: [atraumatic], [normocephalic], [symmetric] Eyes: [EOMI], [no lid lag], [anicteric sclera] Mouth: [no lip lesion], [mucus membranes moist] Cardiovascular: [S1S2 reg], [no murmur], [positive DP pulse bilateral] Lungs: [CTA bilateral], [no rhonchi, no rales] , [no accessory muscle use] Abdominal: [soft], [ nontender to palpation], [no guarding], [no appreciable organomegaly] Ext: [no gross muscle atrophy], [no edema], [no contractures] Neuro: [no focal neuro deficits] Psych: [Alert], [oriented], [appropriate affect] - Labs CBC & Chem 7: 10/26/18 07:33 10/26/18 07:33 Assessment and Plan Assessment: Assessment and Plan Fall with generalized weakness and debility Elevated CPK Acute kidney injury Cough likely secondary to acute bronchitis Headache, possible sinusitis versus ALLERGIC rhinitis Chronic diarrhea Hypertension CAD post CABG Rheumatoid arthritis Glaucoma Dementia Patient with fall, states that knees buckled. Complains of generalized weakness over the past week. CT brain negative. Pelvic x-ray negative. Plans: Fall precautions. Social work consulted, plans for [facility]. Follow PT consultation. CPK 593-255. Likely secondary to fall. Plans: Continue normal saline at 75 mL per hour. Daily BMP to monitor renal function. BUN 43, creatinine 1.70-1.61. Likely secondary to dehydration. Plans: Continue normal saline as above. Daily BMP. Patient is afebrile with no leukocytosis. Chest x-ray is negative. Plans: Started 5 day course of steroids with no improvement. Will start Augmentin to cover possible bacterial bronchitis.DuoNeb 4 times a day scheduled for shortness of breath and wheezing. Tenderness to palpation over the frontal maxillary sinus with history of seasonal ALLERGIES. Plans: Start Augmentin to cover for sinusitis. Start Mucinex. Chronic in nature. Plans: Imodium as needed. Will need adequate follow-up in the outpatient setting. BP 167/68. Plans: Continue metoprolol. Monitor vitals, adjust medications as necessary. Stable. Plans: Continue aspirin. Will not start statin drug due to elevated CPK. Sister reports that patient missed shot of Enbrel on Friday. Plans: Follow physical therapy consultation. Advised sister to bring in Enbrel so we can administer the medication here. Stable. Plans: Continue eyedrops as part of home medication. Stable. Plans: Continue memantine. Frequent redirection. Window side bed if possible. Avoid restraints. Patient names her sister Nickie decision-maker in the case that she can't make decisions for herself. Patient states that she would like to be DO NOT RESUSCITATE and DO NOT INTUBATE. Plans for [facility]. Social work is consulted. DC when accepted, prior authorization required.
[2018-10-27 13:52] LABS: Basophils % (A) 0 %; Eosinophils # (A) 0.1 k/uL (0-0.7); Eosinophils % (A) 1 %; HCT 32.8 % (34.0-46.0); HGB 9.9 gm/dL (11.4-16.0); Hypochromasia Moderate; Lymphocytes # (A) 0.9 k/uL (1.0-4.8); Lymphocytes % (A) 11 %; MCH 26.5 pg (25.0-35.0); MCHC 30.3 g/dL (31.0-37.0); MCV 87.7 fL (80.0-100.0); Mean Platelet Volume 9.2; Monocytes # (A) 0.5 k/uL (0-1.0); Monocytes % (A) 6 %; Neutrophils # (A) 6.1 k/uL (1.3-7.7); Neutrophils % (A) 80 %; Platelet Count 109 k/uL (150-450); RBC 3.74 m/uL (3.80-5.40); RDW 14.6 % (11.5-15.5); WBC 7.7 k/uL (3.8-10.6)
[2018-10-27 14:08] LABS: Calcium 8.3 mg/dL (8.4-10.2); Potassium 3.4 mmol/L (3.5-5.1)
--- NOTE | 2018-10-27 16:02 | XR ---
EXAMINATION TYPE: XR chest 2V DATE OF EXAM: 10/27/2018 COMPARISON: Prior chest x-ray 10/25/2018 HISTORY: Shortness of breath TECHNIQUE: Frontal and lateral views of the chest are obtained. FINDINGS: There is been interval development of patchy increased density bilaterally. Patient is pos t median sternotomy. Aorta is dense and likely ectatic. Heart size is stable and enlarged. No pneumot horax, blunting the posterior costophrenic angles may represent small effusions. IMPRESSION: Correlate for possible congestive heart failure or pneumonia. Follow-up is recommended.
[2018-10-27] MEDS: LATANOPROST 0.005% OPHTH DROPS 2.5 ML BTL BOTH EYES SCH (20:11)
[2018-10-27] MEDS: ACETAMINOPHEN TAB 325 MG TAB PO PRN (21:45)
[2018-10-28] MEDS: IPRATROPIUM-ALBUTEROL 3 ML NEB INHALATION SCH ×6 (05:09→22:52)
[2018-10-28] MEDS: ACETAMINOPHEN TAB 325 MG TAB PO PRN ×2 (06:36→15:59)
[2018-10-28] MEDS: AMOXIC-POT CLAV 875-125MG 1 EACH TAB PO SCH (09:01)
[2018-10-28] MEDS: PANTOPRAZOLE 40 MG TABLET PO SCH (09:01)
[2018-10-28] MEDS: SERTRALINE 100 MG TAB PO SCH (09:01)
[2018-10-28] MEDS: ASPIRIN 81 MG PO SCH (09:02)
[2018-10-28] MEDS: METOPROLOL SUCCINATE (ER) 25 MG TAB.ER.24H PO SCH ×2 (09:02→21:42)
[2018-10-28] MEDS: BRIMONIDINE TARTRATE 0.2% DROPS 5 ML BTL BOTH EYES SCH ×2 (09:02→22:30)
[2018-10-28] MEDS: MEMANTINE 10 MG TAB PO SCH (09:02)
[2018-10-28] MEDS: guaiFENesin 600 MG TABLET.ER PO SCH ×2 (09:02→21:42)
[2018-10-28] MEDS: DORZOLAMIDE HCL 2% DROPS 10 ML BTL BOTH EYES SCH ×2 (09:03→22:30)
[2018-10-28] MEDS ORDERED: PATIENT'S OWN MED (Etanercept [Enbrel] 50 MG) SQ SCH (12:00)
[2018-10-28] MEDS ORDERED: Etanercept [Enbrel] 25 MG SQ SCH (13:00)
[2018-10-28 14:19] LABS: Basophils % (A) 0 %; Eosinophils # (A) 0.1 k/uL (0-0.7); Eosinophils % (A) 1 %; HCT 34.2 % (34.0-46.0); Hypochromasia Marked; Lymphocytes # (A) 0.8 k/uL (1.0-4.8); Lymphocytes % (A) 10 %; MCHC 29.2 g/dL (31.0-37.0); MCV 88.9 fL (80.0-100.0); Mean Platelet Volume 9.3; Monocytes # (A) 0.4 k/uL (0-1.0); Monocytes % (A) 5 %; Neutrophils # (A) 6.4 k/uL (1.3-7.7); Neutrophils % (A) 82 %; Platelet Count 108 k/uL (150-450); RBC 3.85 m/uL (3.80-5.40); RDW 14.3 % (11.5-15.5); WBC 7.7 k/uL (3.8-10.6)
[2018-10-28 14:37] LABS: Calcium 8.7 mg/dL (8.4-10.2); Potassium 3.5 mmol/L (3.5-5.1)
[2018-10-28] MEDS ORDERED: FUROSEMIDE 10 MG/ML 4 ML VIAL IV STA (15:03)
--- NOTE | 2018-10-28 15:09 | P.PN ---
Subjective Progress Note Date: 10/28/18 Principal diagnosis: Debility, cough Patient was seen and examined. No acute events overnight. Her sister is at bedside. Sister reports that the patient is considerably improved since admission. Patient states that DuoNeb's help with the cough but is still persistent. She denies any chest pain or shortness of breath. No nausea or vomiting. No fever or chills. Objective - Vital Signs Vital signs: Vital Signs Temp 98.3 F 10/28/18 13:06 Pulse 61 10/28/18 13:06 Resp 16 10/28/18 13:06 BP 145/67 10/28/18 13:06 Pulse Ox 100 10/28/18 13:06 Intake & Output 10/27/18 10/28/18 10/28/18 18:59 06:59 18:59 Intake Total 240 Balance 240 Intake: Oral 240 Other: Voiding Method Diaper Diaper Incontinent Incontinent # Voids 1 1 1 - Exam General: [non toxic], [no distress], [appears at stated age], [appears pale] Derm: [warm], [dry], [ecchymotic bruising over various parts of the body likely from the fall] Head: [atraumatic], [normocephalic], [symmetric] Eyes: [EOMI], [no lid lag], [anicteric sclera] Mouth: [no lip lesion], [mucus membranes moist] Cardiovascular: [S1S2 reg], [no murmur], [positive DP pulse bilateral] Lungs: [Wheezing bilaterally], [no rhonchi, no rales] , [no accessory muscle use] Abdominal: [soft], [ nontender to palpation], [no guarding], [no appreciable organomegaly] Ext: [no gross muscle atrophy], [no edema], [no contractures] Neuro: [no focal neuro deficits] Psych: [Alert], [oriented], [appropriate affect] - Labs CBC & Chem 7: 10/28/18 13:48 10/28/18 13:48 Labs: Abnormal Lab Results - Last 24 Hours (Table) 10/28/18 10/28/18 Range/Units 13:48 13:48 Hgb 10.0 L (11.4-16.0) gm/dL MCHC 29.2 L (31.0-37.0) g/dL Plt Count 108 L (150-450) k/uL Lymphocytes # 0.8 L (1.0-4.8) k/uL BUN 24 H (7-17) mg/dL Creatinine 1.51 H (0.52-1.04) mg/dL Glucose 125 H (74-99) mg/dL Assessment and Plan Assessment: Assessment and Plan Fall with generalized weakness and debility Elevated CPK Acute kidney injury Cough likely secondary to acute bronchitis Headache, possible sinusitis versus ALLERGIC rhinitis Chronic diarrhea Hypertension CAD post CABG Rheumatoid arthritis Glaucoma Dementia Patient with fall, states that knees buckled. Complains of generalized weakness over the past week. CT brain negative. Pelvic x-ray negative. Plans: Fall precautions. Social work consulted, plans for [facility]. Follow PT consultation. CPK 593-255. Likely secondary to fall. Plans: DC IVF and encourage hydration by mouth. Daily BMP to monitor renal function. BUN 43, creatinine 1.70-1.61-1.51. Likely secondary to dehydration. Plans: Continue normal saline as above. Daily BMP. Patient is afebrile with no leukocytosis. Chest x-ray is negative. Chest x-ray showing concerns for bilateral haziness. Plans: Started 5 day course of steroids with no improvement. Will start Augmentin to cover possible bacterial bronchitis. DuoNeb 4 times a day scheduled for shortness of breath and wheezing. Will give one-time dose of Lasix 40 mg IV. Tenderness to palpation over the frontal maxillary sinus with history of seasonal ALLERGIES. Plans: Start Augmentin to cover for sinusitis. Start Mucinex. Chronic in nature. Plans: Imodium as needed. Will need adequate follow-up in the outpatient setting. BP 145/67. Plans: Continue metoprolol. Monitor vitals, adjust medications as necessary. Stable. Plans: Continue aspirin. Will not start statin drug due to elevated CPK. Sister reports that patient missed shot of Enbrel on Friday. Plans: Follow physical therapy consultation. I discussed the case with Dr. Katz, occupational therapist assistants Margret Fagan, patient is okay to be off of Enbrel while in rehab. She should follow up with Dr. Katz for flare-ups. Stable. Plans: Continue eyedrops as part of home medication. Stable. Plans: Continue memantine. Frequent redirection. Window side bed if possible. Avoid restraints. Patient names her sister Nickie decision-maker in the case that she can't make decisions for herself. Patient states that she would like to be DO NOT RESUSCITATE and DO NOT INTUBATE. Plans for [facility]. Social work is consulted. DC when accepted, prior authorization required, okay to be off Enbrel as per occupational therapist assistants to Dr. Katz.
[2018-10-28] MEDS: MEMANTINE 5 MG TAB PO SCH (21:42)
[2018-10-28] MEDS: LATANOPROST 0.005% OPHTH DROPS 2.5 ML BTL BOTH EYES SCH (22:29)
[2018-10-28] MEDS: AMOXIC-POT CLAV 500-125 MG 1 EACH TAB PO SCH (23:28)
[2018-10-28] MEDS: SODIUM CHLORIDE 0.9% 1,000 ML IV SCH (23:29)
[2018-10-29] MEDS: IPRATROPIUM-ALBUTEROL 3 ML NEB INHALATION SCH ×3 (02:55→11:58)
[2018-10-29] MEDS: METOPROLOL SUCCINATE (ER) 25 MG TAB.ER.24H PO SCH (07:20)
[2018-10-29] MEDS: ASPIRIN 81 MG PO SCH (07:20)
[2018-10-29] MEDS: SERTRALINE 100 MG TAB PO SCH (07:20)
[2018-10-29] MEDS: AMOXIC-POT CLAV 500-125 MG 1 EACH TAB PO SCH (07:20)
[2018-10-29] MEDS: PANTOPRAZOLE 40 MG TABLET PO SCH (07:20)
[2018-10-29] MEDS: MEMANTINE 5 MG TAB PO SCH (07:21)
[2018-10-29] MEDS: guaiFENesin 600 MG TABLET.ER PO SCH (07:21)
[2018-10-29] MEDS: BRIMONIDINE TARTRATE 0.2% DROPS 5 ML BTL BOTH EYES SCH (07:21)
[2018-10-29] MEDS: DORZOLAMIDE HCL 2% DROPS 10 ML BTL BOTH EYES SCH (07:21)
[2018-10-29 12:40] VITALS: BP 107/51; PULSE 75; RESP 18; TEMP 98.5
--- NOTE | 2018-10-29 13:58 | P.DS ---
Providers Date of admission: 10/28/18 06:43 Expected date of discharge: 10/29/18 Attending physician: Ruthie Slade DO Primary care physician: Sarath Verma [facility] Course: Discharge diagnosis Fall with generalized weakness and debility Elevated CPK Chronic kidney disease stage IV secondary to nephrosclerosis Acute bronchitis Headache possible sinusitis versus ALLERGIC rhinitis Chronic diarrhea Hypertension CAD post CABG Rheumatoid arthritis Glaucoma Dementia Hospital course Patient with fall, states that knees buckled. Complains of generalized weakness over the past week. CT brain negative. Pelvic x-ray negative. Plans: Fall precautions. Social work consulted, plans for [facility]. Follow PT consultation. CPK [id number]. Likely secondary to fall. Plans: DC IVF and encourage hydration by mouth. Daily BMP to monitor renal function. BUN 43, creatinine 1.70-1.61-1.51. Likely secondary to dehydration. Plans: Continue normal saline as above. Daily BMP. Patient is afebrile with no leukocytosis. Chest x-ray is negative. Chest x-ray showing concerns for bilateral haziness. Plans: Started 5 day course of steroids with no improvement. Will start Augmentin to cover possible bacterial bronchitis. DuoNeb 4 times a day scheduled for shortness of breath and wheezing. Will give one-time dose of Lasix 40 mg IV. Tenderness to palpation over the frontal maxillary sinus with history of seasonal ALLERGIES. Plans: Start Augmentin to cover for sinusitis. Start Mucinex. Chronic in nature. Plans: Imodium as needed. Will need adequate follow-up in the outpatient setting. BP 145/67. Plans: Continue metoprolol. Monitor vitals, adjust medications as necessary. Stable. Plans: Continue aspirin. Will not start statin drug due to elevated CPK. Sister reports that patient missed shot of Enbrel on Friday. Plans: Follow physical therapy consultation. I discussed the case with Dr. Katz, mri assistant Margret Fagan, patient is okay to be off of Enbrel while in rehab. She should follow up with Dr. Katz for flare-ups. Stable. Plans: Continue eyedrops as part of home medication. Stable. Plans: Continue memantine. Frequent redirection. Window side bed if possible. Avoid restraints. Patient names her sister Nickie decision-maker in the case that she can't make decisions for herself. Patient states that she would like to be DO NOT RESUSCITATE and DO NOT INTUBATE. Plans for [facility]. Social work is consulted. DC when accepted, prior authorization required, okay to be off Enbrel as per mri assistant to Dr. Katz. This discharge process took approximately 35 minutes Focused exam Respiratory: Clear to auscultation bilaterally no wheezes or rhonchi breathing unlabored Patient Condition at Discharge: Good Plan - Discharge Summary Discharge Rx Participant: Yes New Discharge Prescriptions: New Amoxic-Pot Clav 500-125 mg [Augmentin 500-125 mg] 1 each PO Q12HR #10 tab guaiFENesin [Mucinex] 600 mg PO Q12HR #7 tablet.er Continue Sertraline [Zoloft] 200 mg PO DAILY Rosuvastatin [Crestor] 20 mg PO HS Potassium Chloride [Klor-Con 10] 10 meq PO DAILY Aspirin EC [Ecotrin Low Dose] 81 mg PO DAILY Triamterene-Hctz 37.5-25Mg [Maxzide 37.5-25] 0.5 tab PO DAILY Lansoprazole [Prevacid] 15 mg PO DAILY Metoprolol Succinate [Toprol XL] 25 mg PO BID Memantine [Namenda] 10 mg PO BID Latanoprost/Pf [Latanoprost 0.005% Eye Drop] 1 drop BOTH EYES QAM Brinzolamide/Brimonidine Tart [Simbrinza 1%-0.2% Eye Drops] 1 drop BOTH EYES BID predniSONE 50 mg PO DAILY #5 tablet Albuterol Inhaler [Ventolin Hfa Inhaler] 1 - 2 puff INHALATION RT-Q6H PRN PRN Reason: Shortness Of Breath Etanercept [Enbrel] 50 mg SQ WESA #0 Discharge Medication List Aspirin EC [Ecotrin Low Dose] 81 mg PO DAILY 10/20/18 [History] Brinzolamide/Brimonidine Tart [Simbrinza 1%-0.2% Eye Drops] 1 drop BOTH EYES BID 10/20/18 [History] Lansoprazole [Prevacid] 15 mg PO DAILY 10/20/18 [History] Latanoprost/Pf [Latanoprost 0.005% Eye Drop] 1 drop BOTH EYES QAM 10/20/18 [History] Memantine [Namenda] 10 mg PO BID 10/20/18 [History] Metoprolol Succinate [Toprol XL] 25 mg PO BID 10/20/18 [History] Potassium Chloride [Klor-Con 10] 10 meq PO DAILY 10/20/18 [History] Rosuvastatin [Crestor] 20 mg PO HS 10/20/18 [History] Sertraline [Zoloft] 200 mg PO DAILY 10/20/18 [History] Triamterene-Hctz 37.5-25Mg [Maxzide 37.5-25] 0.5 tab PO DAILY 10/20/18 [History] predniSONE 50 mg PO DAILY #5 tablet 10/20/18 [Rx] Albuterol Inhaler [Ventolin Hfa Inhaler] 1 - 2 puff INHALATION RT-Q6H PRN 10/25/18 [History] Amoxic-Pot Clav 500-125 mg [Augmentin 500-125 mg] 1 each PO Q12HR #10 tab 10/29/18 [Rx] Etanercept [Enbrel] 50 mg SQ WESA #0 10/29/18 [Rx] guaiFENesin [Mucinex] 600 mg PO Q12HR #7 tablet.er 10/29/18 [Rx] Follow up Appointment(s)/Referral(s): Sarath Verma MD [Primary Care Provider] - 1-2 days Activity/Diet/Wound Care/Special Instructions: diet- heart healthy activity as tolerated up with standbye assessment No wounds
== END 2018-10-29 15:50 | DRG 684 ==
LOC: EC 13:08 → 4SSUR 16:59 → OBSVTOIN 10-28 06:43 → 4MS4W 10-28 18:56
PROVIDERS: ADMIT Internal Medicine; ATTEND Internal Medicine
DX: N17.9 Acute kidney failure, unspecified (principal); N18.4 Chronic kidney disease, stage 4 (severe); R53.81 Other malaise; M25.512 Pain in left shoulder; G89.29 Other chronic pain; J20.9 Acute bronchitis, unspecified; H40.9 Unspecified glaucoma; K52.9 Noninfective gastroenteritis and colitis, unspecified; I25.10 Atherosclerotic heart disease of native coronary artery without angina pectoris; E03.9 Hypothyroidism, unspecified; Z66 Do not resuscitate; E86.0 Dehydration; R74.8 Abnormal levels of other serum enzymes; I12.9 Hypertensive chronic kidney disease with stage 1 through stage 4 chronic kidney disease, or unspecified chronic kidney disease; E66.9 Obesity, unspecified; F03.90 Unspecified dementia, unspecified severity, without behavioral disturbance, psychotic disturbance, mood disturbance, and anxiety; M06.9 Rheumatoid arthritis, unspecified; J30.2 Other seasonal allergic rhinitis; E78.5 Hyperlipidemia, unspecified; W01.0XXA Fall on same level from slipping, tripping and stumbling without subsequent striking against object, initial encounter; Z95.1 Presence of aortocoronary bypass graft; Z90.710 Acquired absence of both cervix and uterus; Z90.49 Acquired absence of other specified parts of digestive tract; Z79.82 Long term (current) use of aspirin; Z79.899 Other long term (current) drug therapy; Z79.52 Long term (current) use of systemic steroids; Z88.5 Allergy status to narcotic agent; Z91.041 Radiographic dye allergy status; Z91.040 Latex allergy status; Z68.28 Body mass index [BMI] 28.0-28.9, adult
CPT/HCPCS: 36415; 70450; 71046; 72170; 80048; 80053; 82550; 83735; 84439; 84443; 84481; 84484; 85025; 85610; 85730; 93005; 94640; 96360; 96361; 99285

== ENCOUNTER 2018-12-26 11:51 | Inpatient (IN) | payer MEDICARE ==
[2018-12-26] MEDS ORDERED: SODIUM CHLORIDE 0.9% 1,000 ML IV ONE (12:10)
[2018-12-26 12:28] LABS: Glucose,Whole Blood 156 mg/dL (75-99)
[2018-12-26 12:29] LABS: Basophils % (A) 0 %; Eosinophils % (A) 0 %; HGB 11.3 gm/dL (11.4-16.0); Hypochromasia Slight; Lymphocytes # (A) 0.6 k/uL (1.0-4.8); Lymphocytes % (A) 6 %; MCH 25.9 pg (25.0-35.0); MCHC 30.5 g/dL (31.0-37.0); MCV 84.9 fL (80.0-100.0); Mean Platelet Volume 10.7; Monocytes # (A) 0.7 k/uL (0-1.0); Monocytes % (A) 6 %; Neutrophils # (A) 9.3 k/uL (1.3-7.7); Neutrophils % (A) 87 %; RBC 4.36 m/uL (3.80-5.40); RDW 14.8 % (11.5-15.5); WBC 10.8 k/uL (3.8-10.6)
--- NOTE | 2018-12-26 12:30 | ED ---
General Adult HPI - General Chief complaint: Fall Stated complaint: Fall Time Seen by Provider: 12/26/18 11:55 Source: EMS, RN notes reviewed Mode of arrival: EMS Limitations: no limitations - History of Present Illness Initial comments: This is an 88-year-old female who was found on the bathroom floor by her sister. Patient was confused according to the sister. Patient thought she was in her bed but clearly she was on the bathroom floor. Patient complained of left hip pain. According to the sister that the patient is a little bit confused on a normal basis but today she was very confused and does not remember what happened. Patient denies any headache patient denies any neck pain. Patient denies chest pain difficulty breathing or shortness of breath. Patient denies any abdominal pain. Patient does complain of left hip pain. Patient denies any other extremity pain. Patient does not remember falling. - Related Data Home Medications Medication Instructions Recorded Confirmed Aspirin EC [Ecotrin Low Dose] 81 mg PO DAILY 10/20/18 12/26/18 Brinzolamide/Brimonidine Tart 1 drop BOTH EYES BID 10/20/18 12/26/18 [Simbrinza 1%-0.2% Eye Drops] Lansoprazole [Prevacid] 15 mg PO DAILY 10/20/18 12/26/18 Latanoprost/Pf [Latanoprost 0.005% 1 drop BOTH EYES QAM 10/20/18 12/26/18 Eye Drop] Memantine [Namenda] 10 mg PO BID 10/20/18 12/26/18 Metoprolol Succinate [Toprol XL] 25 mg PO BID 10/20/18 12/26/18 Potassium Chloride [Klor-Con 10] 10 meq PO DAILY 10/20/18 12/26/18 Rosuvastatin [Crestor] 20 mg PO HS 10/20/18 12/26/18 Sertraline [Zoloft] 200 mg PO DAILY 10/20/18 12/26/18 Triamterene-Hctz 37.5-25Mg 0.5 tab PO DAILY 10/20/18 12/26/18 [Maxzide 37.5-25] Albuterol Inhaler [Ventolin Hfa 1 - 2 puff INHALATION RT-Q6H PRN 10/25/18 12/26/18 Inhaler] Allergies Allergy/AdvReac Type Severity Reaction Status Date / Time latex Allergy Rash/Hives Verified 12/26/18 12:48 acetaminophen AdvReac Unknown Verified 12/26/18 12:48 [From Darvocet-N] cephalexin [From Keflex] AdvReac Unknown Verified 12/26/18 12:48 Iodinated Contrast- Oral and AdvReac Dyspnea Verified 12/26/18 12:48 IV Dye propoxyphene AdvReac Unknown Verified 12/26/18 12:48 [From Darvocet-N] Review of Systems ROS Statement: Those systems with pertinent positive or pertinent negative responses have been documented in the HPI. ROS Other: All systems not noted in ROS Statement are negative. Past Medical History Past Medical History: Hypertension Additional Past Medical History / Comment(s): hypercholestremia. hypothyroidism. low potassium. dementia. History of Any Multi-Drug Resistant Organisms: None Reported Past Surgical History: Cholecystectomy, Coronary Bypass/CABG, Hysterectomy Past Psychological History: No Psychological Hx Reported Smoking Status: Never smoker Past Alcohol Use History: None Reported Past Drug Use History: None Reported General Exam - General Exam Comments Initial Comments: GENERAL: Patient is well-developed and well-nourished. Patient is nontoxic and well- hydrated and is in mild distress. Patient has no tenderness to her scalp. ENT: Neck is soft and supple. No significant lymphadenopathy is noted. Oropharynx is clear. Moist mucous membranes. Neck has full range of motion without eliciting any pain. Patient has tenderness in the spinous process at about C2- C3 EYES: The sclera were anicteric and conjunctiva were pink and moist. Extraocular movements were intact and pupils were equal round and reactive to light. Eyelids were unremarkable. PULMONARY: Unlabored respirations. Good breath sounds bilaterally. No audible rales rhonchi or wheezing was noted. CARDIOVASCULAR: There is a regular rate and rhythm without any murmurs gallops or rubs. ABDOMEN: Soft and nontender with normal bowel sounds. SKIN: Skin is clear with no lesions or rashes and otherwise unremarkable. NEUROLOGIC: Patient is alert and oriented x3. Cranial nerves II through XII are grossly intact. Motor and sensory are also intact. Normal speech, volume and content. Symmetrical smile. MUSCULOSKELETAL: Normal extremities with adequate strength and full range of motion. No lower extremity swelling or edema. No calf tenderness. LYMPHATICS: No significant lymphadenopathy is noted PSYCHIATRIC: Normal psychiatric evaluation. Limitations: no limitations Course Vital Signs 12/26/18 12/26/18 12/26/18 11:53 14:51 15:10 Temperature 98 F 102.2 F H Pulse Rate 70 73 Respiratory 16 20 Rate Blood Pressure 160/65 147/85 O2 Sat by Pulse 95 95 Oximetry Medical Decision Making - Medical Decision Making EKG shows normal sinus rhythm at 73 bpm OH interval is on a 68 QRSs 150 QT intervals 450 QTC is 495. EKG shows no ST segment elevation or depression. He has left bundle branch block. Chest x-ray shows a pneumonia left lower lobe at this point time I consider the patient to be septic and that was at 3:00 PM X-ray of the hip shows no acute abnormality. CT of the shows no acute abnormalities. CT of the brain and C-spine showed no acute abnormalities I spoke with Dr. Slade she agreed to admit the patient admitted the patient wrote admitting orders continued antibiotics on the floor. - Lab Data Result diagrams: 12/26/18 12:17 12/26/18 12:17 Lab Results 12/26/18 12/26/18 12/26/18 Range/Units 12:17 12:17 12:17 WBC 10.8 H (3.8-10.6) k/uL RBC 4.36 (3.80-5.40) m/uL Hgb 11.3 L (11.4-16.0) gm/dL Hct 37.0 (34.0-46.0) % MCV 84.9 (80.0-100.0) fL MCH 25.9 (25.0-35.0) pg MCHC 30.5 L (31.0-37.0) g/dL RDW 14.8 (11.5-15.5) % Plt Count 81 L (150-450) k/uL Neutrophils % 87 % Lymphocytes % 6 % Monocytes % 6 % Eosinophils % 0 % Basophils % 0 % Neutrophils # 9.3 H (1.3-7.7) k/uL Lymphocytes # 0.6 L (1.0-4.8) k/uL Monocytes # 0.7 (0-1.0) k/uL Eosinophils # 0.0 (0-0.7) k/uL Basophils # 0.0 (0-0.2) k/uL Manual Slide Review Performed Hypochromasia Slight PT (9.0-12.0) sec INR (<1.2) APTT (22.0-30.0) sec Sodium 140 (137-145) mmol/L Potassium 4.7 (3.5-5.1) mmol/L Chloride 103 (98-107) mmol/L Carbon Dioxide 23 (22-30) mmol/L Anion Gap 14 mmol/L BUN 34 H (7-17) mg/dL Creatinine 1.71 H (0.52-1.04) mg/dL Est GFR (CKD-EPI)AfAm 30 (>60 ml/min/1.73 sqM) Est GFR (CKD-EPI)NonAf 26 (>60 ml/min/1.73 sqM) Glucose 170 H (74-99) mg/dL POC Glucose (mg/dL) (75-99) mg/dL POC Glu Aircraft Dispatcher ID Plasma Lactic Acid Odell (0.7-2.0) mmol/L Calcium 9.8 (8.4-10.2) mg/dL Total Bilirubin 0.9 (0.2-1.3) mg/dL AST 24 (14-36) U/L ALT 20 (9-52) U/L Alkaline Phosphatase 89 (38-126) U/L Troponin I 0.012 (0.000-0.034) ng/mL Total Protein 7.8 (6.3-8.2) g/dL Albumin 4.5 (3.5-5.0) g/dL Urine Color Urine Appearance (Clear) Urine pH (5.0-8.0) Ur Specific [place] (1.001-1.035) Urine Protein (Negative) Urine Glucose (UA) (Negative) Urine Ketones (Negative) Urine Blood (Negative) Urine Nitrite (Negative) Urine Bilirubin (Negative) Urine Urobilinogen (<2.0) mg/dL Ur Leukocyte Esterase (Negative) Urine RBC (0-5) /hpf Urine WBC (0-5) /hpf Ur Squamous Epith Cells (0-4) /hpf Urine Mucus (None) /hpf Urine Opiates Screen (NotDetected) Ur Oxycodone Screen (NotDetected) Urine Methadone Screen (NotDetected) Ur Propoxyphene Screen (NotDetected) Ur Barbiturates Screen (NotDetected) U Tricyclic Antidepress (NotDetected) Ur Phencyclidine Scrn (NotDetected) Ur Amphetamines Screen (NotDetected) U Methamphetamines Scrn (NotDetected) U Benzodiazepines Scrn (NotDetected) Urine Cocaine Screen (NotDetected) U Marijuana (THC) Screen (NotDetected) 12/26/18 12/26/18 12/26/18 Range/Units 12:21 12:55 13:55 WBC (3.8-10.6) k/uL RBC (3.80-5.40) m/uL Hgb (11.4-16.0) gm/dL Hct (34.0-46.0) % MCV (80.0-100.0) fL MCH (25.0-35.0) pg MCHC (31.0-37.0) g/dL RDW (11.5-15.5) % Plt Count (150-450) k/uL Neutrophils % % Lymphocytes % % Monocytes % % Eosinophils % % Basophils % % Neutrophils # (1.3-7.7) k/uL Lymphocytes # (1.0-4.8) k/uL Monocytes # (0-1.0) k/uL Eosinophils # (0-0.7) k/uL Basophils # (0-0.2) k/uL Manual Slide Review Hypochromasia PT 11.0 (9.0-12.0) sec INR 1.0 (<1.2) APTT 24.8 (22.0-30.0) sec Sodium (137-145) mmol/L Potassium (3.5-5.1) mmol/L Chloride (98-107) mmol/L Carbon Dioxide (22-30) mmol/L Anion Gap mmol/L BUN (7-17) mg/dL Creatinine (0.52-1.04) mg/dL Est GFR (CKD-EPI)AfAm (>60 ml/min/1.73 sqM) Est GFR (CKD-EPI)NonAf (>60 ml/min/1.73 sqM) Glucose (74-99) mg/dL POC Glucose (mg/dL) 156 H (75-99) mg/dL POC Glu Aircraft Dispatcher ID Tracie Rodrigues Plasma Lactic Acid Odell (0.7-2.0) mmol/L Calcium (8.4-10.2) mg/dL Total Bilirubin (0.2-1.3) mg/dL AST (14-36) U/L ALT (9-52) U/L Alkaline Phosphatase (38-126) U/L Troponin I (0.000-0.034) ng/mL Total Protein (6.3-8.2) g/dL Albumin (3.5-5.0) g/dL Urine Color Yellow Urine Appearance Clear (Clear) Urine pH 5.0 (5.0-8.0) Ur Specific [place] 1.016 (1.001-1.035) Urine Protein Trace H (Negative) Urine Glucose (UA) Negative (Negative) Urine Ketones Negative (Negative) Urine Blood Small H (Negative) Urine Nitrite Negative (Negative) Urine Bilirubin Negative (Negative) Urine Urobilinogen <2.0 (<2.0) mg/dL Ur Leukocyte Esterase Negative (Negative) Urine RBC <1 (0-5) /hpf Urine WBC <1 (0-5) /hpf Ur Squamous Epith Cells 1 (0-4) /hpf Urine Mucus Rare H (None) /hpf Urine Opiates Screen Not Detected (NotDetected) Ur Oxycodone Screen Not Detected (NotDetected) Urine Methadone Screen Not Detected (NotDetected) Ur Propoxyphene Screen Not Detected (NotDetected) Ur Barbiturates Screen Not Detected (NotDetected) U Tricyclic Antidepress Not Detected (NotDetected) Ur Phencyclidine Scrn Not Detected (NotDetected) Ur Amphetamines Screen Not Detected (NotDetected) U Methamphetamines Scrn Not Detected (NotDetected) U Benzodiazepines Scrn Not Detected (NotDetected) Urine Cocaine Screen Not Detected (NotDetected) U Marijuana (THC) Screen Not Detected (NotDetected) 12/26/18 Range/Units 15:04 WBC (3.8-10.6) k/uL RBC (3.80-5.40) m/uL Hgb (11.4-16.0) gm/dL Hct (34.0-46.0) % MCV (80.0-100.0) fL MCH (25.0-35.0) pg MCHC (31.0-37.0) g/dL RDW (11.5-15.5) % Plt Count (150-450) k/uL Neutrophils % % Lymphocytes % % Monocytes % % Eosinophils % % Basophils % % Neutrophils # (1.3-7.7) k/uL Lymphocytes # (1.0-4.8) k/uL Monocytes # (0-1.0) k/uL Eosinophils # (0-0.7) k/uL Basophils # (0-0.2) k/uL Manual Slide Review Hypochromasia PT (9.0-12.0) sec INR (<1.2) APTT (22.0-30.0) sec Sodium (137-145) mmol/L Potassium (3.5-5.1) mmol/L Chloride (98-107) mmol/L Carbon Dioxide (22-30) mmol/L Anion Gap mmol/L BUN (7-17) mg/dL Creatinine (0.52-1.04) mg/dL Est GFR (CKD-EPI)AfAm (>60 ml/min/1.73 sqM) Est GFR (CKD-EPI)NonAf (>60 ml/min/1.73 sqM) Glucose (74-99) mg/dL POC Glucose (mg/dL) (75-99) mg/dL POC Glu Aircraft Dispatcher ID Plasma Lactic Acid Odell 1.0 (0.7-2.0) mmol/L Calcium (8.4-10.2) mg/dL Total Bilirubin (0.2-1.3) mg/dL AST (14-36) U/L ALT (9-52) U/L Alkaline Phosphatase (38-126) U/L Troponin I (0.000-0.034) ng/mL Total Protein (6.3-8.2) g/dL Albumin (3.5-5.0) g/dL Urine Color Urine Appearance (Clear) Urine pH (5.0-8.0) Ur Specific [place] (1.001-1.035) Urine Protein (Negative) Urine Glucose (UA) (Negative) Urine Ketones (Negative) Urine Blood (Negative) Urine Nitrite (Negative) Urine Bilirubin (Negative) Urine Urobilinogen (<2.0) mg/dL Ur Leukocyte Esterase (Negative) Urine RBC (0-5) /hpf Urine WBC (0-5) /hpf Ur Squamous Epith Cells (0-4) /hpf Urine Mucus (None) /hpf Urine Opiates Screen (NotDetected) Ur Oxycodone Screen (NotDetected) Urine Methadone Screen (NotDetected) Ur Propoxyphene Screen (NotDetected) Ur Barbiturates Screen (NotDetected) U Tricyclic Antidepress (NotDetected) Ur Phencyclidine Scrn (NotDetected) Ur Amphetamines Screen (NotDetected) U Methamphetamines Scrn (NotDetected) U Benzodiazepines Scrn (NotDetected) Urine Cocaine Screen (NotDetected) U Marijuana (THC) Screen (NotDetected) Critical Care Time Critical Care Time: Yes Total Critical Care Time: 35 Disposition Clinical Impression: Pneumonia, Sepsis, Left hip pain, Altered mental status Disposition: ADMITTED IP TO THIS [facility] Referrals: Sarath Verma MD [Primary Care Provider] - 1-2 days Time of Disposition: 16:35
[2018-12-26] MEDS ORDERED: HYDROmorphone 1 MG/ML 1 ML SYRINGE IVP STA (12:33)
[2018-12-26 12:37] LABS: Albumin 4.5 g/dL (3.5-5.0); Calcium 9.8 mg/dL (8.4-10.2); Potassium 4.7 mmol/L (3.5-5.1); Total Bilirubin 0.9 mg/dL (0.2-1.3); Total Protein 7.8 g/dL (6.3-8.2)
[2018-12-26 12:45] LABS: Platelet Count 81 k/uL (150-450)
--- NOTE | 2018-12-26 12:49 | CT ---
EXAMINATION TYPE: CT brain cspine wo con DATE OF EXAM: 12/26/2018 COMPARISON: 10/25/2018 HISTORY: Fall today with injury. CT DLP: 1250.5 mGycm, Automated exposure control for dose reduction was used. CONTRAST: None CT of the brain is performed utilizing 3 mm thick sections through the posterior fossa and 3 mm thick sections through the remaining calvarium. Study is performed within 24 hours of arrival to the hospital. No abnormal hyperdensity is present to suggest an acute intracranial hemorrhage. No mass lesion is evident. No acute infarcts are evident. Periventricular white matter hypodensity is present, likely on the ba sis of chronic white matter ischemic changes. Ventricles and sulci are prominent for the patient age. Paranasal sinuses and mastoid air cells within the [id number] are clear. IMPRESSIONS: 1. Atrophy with periventricular white matter ischemic changes. 2. No acute intracranial process. 3. Exam is stable from October 2018 CT cervical spine. COMPARISON: None CT of the cervical spine is performed in the axial plane at 2 mm thick sections. Reconstructed image s in the coronal, and sagittal plane are reviewed on the computer. No acute fractures are evident. Vertebral body alignment is normal. There is diffuse loss of disc height throughout the cervical spine. Vertebral body heights are preserved. No spinal canal stenosis is evident. No neural foraminal stenosis is evident. IMPRESSIONS: 1. Degenerative disc changes. 2. No acute osseous abnormality.
[2018-12-26 13:11] LABS: Partial Thromboplastin Time 24.8 sec (22.0-30.0)
--- NOTE | 2018-12-26 13:19 | XR ---
EXAMINATION TYPE: XR Hip LT and AP Pelvis DATE OF EXAM: 12/26/2018 COMPARISON: None HISTORY: Pain after fall TECHNIQUE: Left hip is examined in 2 views and supplemented with an AP pelvis. FINDINGS: Femoral heads articulate with the acetabulum. Joint space narrowing is present. No acute fr actures are evident Left hip: Femoral head articulates with the acetabulum. No acute fracture is evident. Surgical vascul ar clip is likely present medial thigh. IMPRESSION: 1. No acute fracture left hip
--- NOTE | 2018-12-26 13:24 | XR ---
EXAMINATION TYPE: XR chest 2V DATE OF EXAM: 12/26/2018 COMPARISON: 10/27/2018 HISTORY: Altered mental status pain after fall TECHNIQUE: 2 view chest FINDINGS: Sternotomy wires are present from prior CABG. The heart size is normal. The pulmonary vascu lature is normal. Mild left lower lobe infiltrate may be present. No pneumothorax is evident. IMPRESSION: 1. Suggestion of a left lower lobe infiltrate. Correlate for atelectasis or pneumonia. Pulmonary con tusion is not excluded.
[2018-12-26 14:07] LABS: Appearance,Urine Clear (Clear); Bilirubin,Urine Negative (Negative); Blood,Urine Small (Negative); Color,Urine Yellow; Glucose,Urine (UA) Negative (Negative); Ketones,Urine Negative (Negative); Leukocyte Esterase,Urine Negative (Negative); Mucus,Urine Rare /hpf; Nitrite,Urine Negative (Negative); Protein,Urine Trace (Negative); RBC,Urine <1 /hpf (0-5); Specific Gravity,Urine 1.016 (1.001-1.035); Squamous Epithelial Cell,Urine 1 /hpf (0-4); Urobilinogen,Urine <2.0 mg/dL (<2.0); WBC,Urine <1 /hpf (0-5)
[2018-12-26 14:19] LABS: Amphetamine Screen,Urine Not Detected (NotDetected); Barbiturate Screen,Urine Not Detected (NotDetected); Benzodiazepines Screen,Urine Not Detected (NotDetected); Cocaine Screen,Urine Not Detected (NotDetected); Methadone Screen, Urine Not Detected (NotDetected); Opiate Screen,Urine Not Detected (NotDetected); Oxycodone Screen, Urine Not Detected (NotDetected); Phencyclidine Screen,Urine Not Detected (NotDetected); Tricyclic Antidepressant,Urine Not Detected (NotDetected); Urn Cannabinoid Scrn Not Detected (NotDetected)
[2018-12-26] MEDS ORDERED: LEVOFLOXACIN 750MG-D5W PMX 750 MG in DEXTROSE/WATER 1 150ML.BAG IVPB STA (15:01)
--- NOTE | 2018-12-26 15:37 | CT ---
EXAMINATION TYPE: CT hip LT wo con DATE OF EXAM: 12/26/2018 COMPARISON: None HISTORY: Left hip pain after fall. CT DLP: 698.6 mGycm Automated exposure control for dose reduction was used. FINDINGS: Multiple axial sections were obtained from the iliac crest to the subtrochanteric femur without contr ast. There is mild acetabular hypertrophic spurring. Proximal femurs intact. There is no evidence of a fra cture. Left iliac bone is intact. There is no evidence of pelvic mass. IMPRESSION: NO FRACTURE SEEN. MILD OSTEOARTHRITIS.
[2018-12-26] MEDS ORDERED: IBUPROFEN 600 MG TAB PO STA (16:21)
[2018-12-26] MEDS ORDERED: SODIUM CHLORIDE 0.9% 500 ML 500 ML IV ONE (16:42)
[2018-12-26] MEDS ORDERED: PNEUMONIA PROTOCOL UTILIZED 1 EACH MISC PO PRN (16:42)
[2018-12-26] MEDS ORDERED: AZITHROMYCIN 500 MG in SODIUM CHLORIDE 0.9% 250 ML IVPB STA (16:56)
[2018-12-26] MEDS: SODIUM CHLORIDE 0.9% 1,000 ML IV SCH (16:58)
[2018-12-26] MEDS ORDERED: IBUPROFEN 400 MG TAB PO PRN (17:55)
[2018-12-26] MEDS ORDERED: ONDANSETRON 4 MG/2 ML VIAL IVP PRN (17:55)
[2018-12-26] MEDS ORDERED: MELATONIN 3 MG TABLET PO PRN (17:55)
[2018-12-26] MEDS ORDERED: NALOXONE 0.4 MG/ML 1 ML VIAL IV PRN (17:55)
[2018-12-26] MEDS ORDERED: ALBUTEROL NEBULIZED 2.5 MG/3 ML INHALATION PRN (18:00)
--- NOTE | 2018-12-26 18:35 | P.HPIM ---
History of Present Illness H&P Date: 12/26/18 Chief Complaint: fall and altered mentation Patient is an 88-year-old female with a past medical history of dementia, hypertension, dyslipidemia, coronary artery disease, rheumatoid arthritis, incontinence, and neuropathy who was brought in via EMS after being found down in her bathroom by her sister. In the emergency department she underwent an extensive evaluation. On arrival showed blood pressure 160/65 other vital signs were unremarkable. Approximately 4 hours after being in the ER she developed a rectal temperature of 102.2. She was having left hip pain. Hip and pelvic x-ray showed no acute fracture. This was followed up by CT which also did not demonstrate an acute fracture. She underwent a chest x-ray which showed a left lower lobe infiltrate. CT head and neck showed no acute abnormalities but some degenerative degenerative disc disease. Laboratory analysis showed elevated WBC at 10.8, HgB 11.3, Plt 81, and Cr 1.71 (at baseline). Lactic acid was normal at 1. She was given a dose of levaquin in the emergency department for pneumonia. Arrangements were made for admission. Patient seen and examined at bedside with sister present in the ED. She reports she does not remember the fall. She is unsure how long she was down for or if she passed out. Her sister came to her house at [facility] 11 am and found her laying on the bathroom floor. She reported that she hit her head and that she was having left lip pain. Her sister called EMS. Sister does not believe that the patient could've been on the floor for very long. Apparently she typically wakes up between 10 and 10:30 in the morning. Sister states that her morning medications had been taken out of her pill box. When her sister arrived the patient was very confused. Her whole-body was tremoring, and she was seeing things that were not there. Her sister reports that she has a history of dementia but has been doing well. She was recently at [facility] and released approximately 3 weeks ago. At that point in time she was cleared to live on her own. They both deny any recent shortness of breath, cough, or fevers at home. She has not had any recent diarrhea or constipation. She is incontinent of urine but denies any dysuria. Currently she is having left lower quadrant pain as well as left hip pain that is worse with movement and better with lying still. She does have a slight headache that is all throughout her head. Apparently she was just seeing cars on the ceiling. She follows with Dr. Verma. Review of Systems ROS unobtainable: due to mental status Past Medical History Past Medical History: Hypertension Additional Past Medical History / Comment(s): hypercholestremia. hypothyroidism. Coronary artery disease. dementia. Neuropathy. Rheumatoid arthritis. Urinary incontinence History of Any Multi-Drug Resistant Organisms: None Reported Past Surgical History: Cholecystectomy, Coronary Bypass/CABG, Hysterectomy Past Psychological History: No Psychological Hx Reported Smoking Status: Former smoker Past Alcohol Use History: None Reported Past Drug Use History: None Reported Additional History: Lives alone, uses a rolling walker - Past Family History Father Additional Family Medical History / Comment(s): from heart disease Mother Additional Family Medical History / Comment(s): from heart disease Medications and Allergies Home Medications Medication Instructions Recorded Confirmed Type Aspirin EC [Ecotrin Low Dose] 81 mg PO DAILY 10/20/18 12/26/18 History Brinzolamide/Brimonidine Tart 1 drop BOTH EYES BID 10/20/18 12/26/18 History [Simbrinza 1%-0.2% Eye Drops] Lansoprazole [Prevacid] 15 mg PO DAILY 10/20/18 12/26/18 History Latanoprost/Pf [Latanoprost 0.005% 1 drop BOTH EYES QAM 10/20/18 12/26/18 History Eye Drop] Memantine [Namenda] 10 mg PO BID 10/20/18 12/26/18 History Metoprolol Succinate [Toprol XL] 25 mg PO BID 10/20/18 12/26/18 History Potassium Chloride [Klor-Con 10] 10 meq PO DAILY 10/20/18 12/26/18 History Rosuvastatin [Crestor] 20 mg PO HS 10/20/18 12/26/18 History Sertraline [Zoloft] 200 mg PO DAILY 10/20/18 12/26/18 History Triamterene-Hctz 37.5-25Mg 0.5 tab PO DAILY 10/20/18 12/26/18 History [Maxzide 37.5-25] Albuterol Inhaler [Ventolin Hfa 1 - 2 puff INHALATION RT-Q6H PRN 10/25/18 12/26/18 History Inhaler] Allergies Allergy/AdvReac Type Severity Reaction Status Date / Time latex Allergy Rash/Hives Verified 12/26/18 12:48 acetaminophen AdvReac Unknown Verified 12/26/18 12:48 [From Darvocet-N] cephalexin [From Keflex] AdvReac Unknown Verified 12/26/18 12:48 Iodinated Contrast- Oral and AdvReac Dyspnea Verified 12/26/18 12:48 IV Dye propoxyphene AdvReac Unknown Verified 12/26/18 12:48 [From Darvocet-N] Physical Exam Osteopathic Statement: *. No significant issues noted on an osteopathic structural exam other than those noted in the History and Physical/Consult. Vitals: Vital Signs Temp Pulse Resp BP Pulse Ox 12/26/18 15:10 102.2 F H 12/26/18 14:51 73 20 147/85 95 12/26/18 11:53 98 F 70 16 160/65 95 Intake and Output 12/26/18 12/26/18 12/26/18 06:59 14:59 22:59 Other: Weight 68.039 kg General: non toxic, no distress, appears at stated age, normal weight Derm: no unusual rashes/lesions no unusual ecchymoses, warm, dry Head: atraumatic, normocephalic, symmetric Eyes: EOMI, no lid lag, anicteric sclera, pupils equal round reactive to light ENT: Nose and ears atraumatic, no thrush, no pharyngeal erythema Neck: No thyromegaly, no cervical lymphadenopathy, trachea midline, supple Mouth: no lip lesion, mucus membranes dry, dentures in place Cardiovascular: S1S2 reg, no murmur, positive posterior tibial pulse bilateral, no edema, capillary refill less than 2 seconds Lungs: decreased be bilateral, no rhonchi, no rales , no accessory muscle use Abdominal: soft, nontender to palpation, no guarding, no appreciable organomegaly, normal bowel sounds Ext: no gross muscle atrophy, muscle strength 5 out of 5 upper extremities grossly, no contractures, muscles strength 5/5 bilateral with ankle plantar and dorsifelxion. limited motion at hip due to pain. Neuro: CN II-XI grossly intact, light touch intact all 4 extremities, finger to nose poor, Psych: Alert, oriented to being in the hospital, confused about events that lead up to being in the hospital, appropriate affect Results CBC & Chem 7: 12/26/18 12:17 12/26/18 12:17 Labs: Abnormal Lab Results - Last 24 Hours (Table) 12/26/18 12/26/18 12/26/18 Range/Units 12:17 12:17 12:21 WBC 10.8 H (3.8-10.6) k/uL Hgb 11.3 L (11.4-16.0) gm/dL MCHC 30.5 L (31.0-37.0) g/dL Plt Count 81 L (150-450) k/uL Neutrophils # 9.3 H (1.3-7.7) k/uL Lymphocytes # 0.6 L (1.0-4.8) k/uL BUN 34 H (7-17) mg/dL Creatinine 1.71 H (0.52-1.04) mg/dL Glucose 170 H (74-99) mg/dL POC Glucose (mg/dL) 156 H (75-99) mg/dL Urine Protein (Negative) Urine Blood (Negative) Urine Mucus (None) /hpf 12/26/18 Range/Units 13:55 WBC (3.8-10.6) k/uL Hgb (11.4-16.0) gm/dL MCHC (31.0-37.0) g/dL Plt Count (150-450) k/uL Neutrophils # (1.3-7.7) k/uL Lymphocytes # (1.0-4.8) k/uL BUN (7-17) mg/dL Creatinine (0.52-1.04) mg/dL Glucose (74-99) mg/dL POC Glucose (mg/dL) (75-99) mg/dL Urine Protein Trace H (Negative) Urine Blood Small H (Negative) Urine Mucus Rare H (None) /hpf Chest x-ray: report reviewed CT Scan - head: report reviewed Thrombosis Risk Factor Assmnt - DVT/VTE Prophylaxis DVT/VTE Prophylaxis: Low risk, early ambulation encouraged Assessment and Plan Assessment: Pneumonia - probable LLL vs pulmonary contusion from fall - repeat CXR in AM - stop levaquin, trial of rocephin (patient and family believe that keflex allergy was diarrhea) and zithromax - pulm hygeine - IVF Toxic metabolic encephalopathy with underlying dementia - treatment of infection - safe and supportive environment - [facility] Fall with head trauma - CT negative - Neuro checks q4 hours to monitor for concussion - pt/ot eval - fall precautions - check orthostatic blood pressures Left hip pain - x-ray and CT negative - add motrin and ultram - pt/ot eval. If pain continues consider ortho consult. HTN, controlled - metoprolol - follow BP HLD - statin ASCAD - ASA, statin, BB The patient is admitted with an anticipated greater than 2 midnight stay for evaluation of Pneumonia. Surrogate decision-maker: - Nickie Diamond CODE STATUS:DNR DVT prophylaxis: heparin Discussed with: Patient , ED physician, family, nursing Anticipated discharge date: 2-[address]: home vs SNF A total of 65 minutes was spent on the care of this complex patient more than 50% of the time was spent in counseling and care coordination.
[2018-12-26] MEDS: BRIMONIDINE TARTRATE 0.2% DROPS 5 ML BTL BOTH EYES SCH (21:06)
[2018-12-26] MEDS: DORZOLAMIDE HCL 2% DROPS 10 ML BTL BOTH EYES SCH (21:06)
[2018-12-26] MEDS: METOPROLOL SUCCINATE (ER) 25 MG TAB.ER.24H PO SCH (21:07)
[2018-12-26] MEDS: ATORVASTATIN 40 MG TAB PO SCH (21:07)
[2018-12-26] MEDS: MEMANTINE 10 MG TAB PO SCH (21:07)
[2018-12-26] MEDS ORDERED: FUROSEMIDE 10 MG/ML 2 ML VIAL IV ONE (22:44)
[2018-12-27] MEDS: SODIUM CHLORIDE 0.9% 1,000 ML IV SCH ×2 (05:41→21:12)
[2018-12-27 07:30] LABS: Basophils % (A) 0 %; Eosinophils % (A) 0 %; HCT 32.4 % (34.0-46.0); HGB 10.1 gm/dL (11.4-16.0); Hypochromasia Moderate; Lymphocytes # (A) 0.8 k/uL (1.0-4.8); Lymphocytes % (A) 9 %; MCH 26.9 pg (25.0-35.0); MCHC 31.2 g/dL (31.0-37.0); Mean Platelet Volume 9.6; Monocytes # (A) 0.6 k/uL (0-1.0); Monocytes % (A) 7 %; Neutrophils # (A) 6.6 k/uL (1.3-7.7); Neutrophils % (A) 81 %; RBC 3.76 m/uL (3.80-5.40); WBC 8.1 k/uL (3.8-10.6)
[2018-12-27 07:41] LABS: Platelet Count 80 k/uL (150-450)
[2018-12-27 07:56] LABS: Calcium 8.9 mg/dL (8.4-10.2); Magnesium 1.9 mg/dL (1.6-2.3); Potassium 3.7 mmol/L (3.5-5.1)
[2018-12-27] MEDS: traMADol 50 MG TAB PO PRN ×2 (08:53→14:15)
[2018-12-27] MEDS: POTASSIUM CHLORIDE ER 10 MEQ TAB.ER.PRT PO SCH (08:54)
[2018-12-27] MEDS: SERTRALINE 100 MG TAB PO SCH (08:54)
[2018-12-27] MEDS: ASPIRIN 81 MG PO SCH (08:54)
[2018-12-27] MEDS: PANTOPRAZOLE 40 MG TABLET PO SCH (08:54)
[2018-12-27] MEDS: TRIAMTERENE-HCTZ 37.5-25MG 1 EACH TAB PO SCH (08:54)
[2018-12-27] MEDS: MEMANTINE 10 MG TAB PO SCH ×2 (08:55→21:18)
[2018-12-27] MEDS: DORZOLAMIDE HCL 2% DROPS 10 ML BTL BOTH EYES SCH ×2 (08:55→21:18)
[2018-12-27] MEDS: BRIMONIDINE TARTRATE 0.2% DROPS 5 ML BTL BOTH EYES SCH ×2 (08:55→21:18)
[2018-12-27] MEDS: METOPROLOL SUCCINATE (ER) 25 MG TAB.ER.24H PO SCH ×2 (08:55→21:18)
[2018-12-27] MEDS: LATANOPROST 0.005% OPHTH DROPS 2.5 ML BTL BOTH EYES SCH (08:56)
--- NOTE | 2018-12-27 09:18 | XR ---
EXAMINATION TYPE: XR chest 2V DATE OF EXAM: 12/27/2018 COMPARISON: Chest x-ray from yesterday. HISTORY: Pneumonia, abnormal x-ray. TECHNIQUE: Frontal and lateral views of the chest are obtained. FINDINGS: Overlying sternal wires and mediastinal clips are redemonstrated. There is chronic parenchy mal change without suspicious focal air space opacity, pleural effusion, or pneumothorax seen. The c ardiac silhouette size is stable and upper limits of normal. The osseous structures are intact. IMPRESSION: No suspicious acute infiltrate on current study.
[2018-12-27] MEDS ORDERED: diphenhydrAMINE 50 MG/ML 1 ML VIAL IVP STA (15:38)
[2018-12-27] MEDS ORDERED: methylPREDNISolone SOD SUCCI 125 MG/2 ML VIAL IV STA ×2 (15:39→16:17)
[2018-12-27] MEDS ORDERED: LEVOFLOXACIN 750MG-D5W PMX 750 MG in DEXTROSE/WATER 1 150ML.BAG IVPB SCH (16:00)
--- NOTE | 2018-12-27 16:45 | P.PN ---
Subjective Progress Note Date: 12/27/18 (delayed charting seen at 1100) Principal diagnosis: fall with altered mentation Patient is an 88-year-old female with a past medical history of dementia, hypertension, dyslipidemia, coronary artery disease, rheumatoid arthritis, incontinence, and neuropathy who was brought in via EMS after being found down in her bathroom by her sister. In the emergency department she underwent an extensive evaluation. On arrival showed blood pressure 160/65 other vital signs were unremarkable. Approximately 4 hours after being in the ER she developed a rectal temperature of 102.2. She was having left hip pain. Hip and pelvic x-ray showed no acute fracture. This was followed up by CT which also did not demonstrate an acute fracture. She underwent a chest x-ray which showed a left lower lobe infiltrate. CT head and neck showed no acute abnormalities but some degenerative degenerative disc disease. Laboratory analysis showed elevated WBC at 10.8, HgB 11.3, Plt 81, and Cr 1.71 (at baseline). Lactic acid was normal at 1. She was given a dose of levaquin in the emergency department for pneumonia. Arrangements were made for admission. She was transitioned to Rocephin (family thought allergy to keflex was likely diarrhea) and zithromax. She was admitted for observation. On the morning of 12/27 she was having a slight headache, will having difficulty getting out of the chair. Patient seen and examined at bedside. No chest pain, SOB, breathing much better than the day prior, no nausea, + slight headache, no worsening of vision, no diarrhea. Hip pain much improved, able to bare weight. Objective - Vital Signs Vital signs: Vital Signs Temp 97.9 F 12/27/18 12:08 Pulse 67 12/27/18 15:15 Resp 17 12/27/18 12:08 BP 166/72 12/27/18 15:15 Pulse Ox 94 L 12/27/18 16:30 Intake & Output 12/26/18 12/27/18 12/27/18 18:59 06:59 18:59 Intake Total 150 650 Balance 150 650 Weight 68.039 kg Intake: Intake, IV Titration 50 Amount cefTRIAXone 1 gm In 50 Sodium Chloride 0.9% 50 ml @ 100 mls/hr IVPB Q24HR [facility] Rx#:[id number] Oral 150 600 Other: Voiding Method Diaper Bedpan Diaper # Voids 1 2 - Exam General: non toxic, no distress, appears at stated age Derm: no burising left hip, warm, dry Head: atraumatic, normocephalic, symmetric Eyes: EOMI, no lid lag, anicteric sclera Mouth: no lip lesion, mucus membranes moist Cardiovascular: S1S2 reg, no murmur, positive posterior tibial pulse bilateral, Lungs: decreased bs bilateral, no rhonchi, no rales , no accessory muscle use Abdominal: soft, nontender to palpation, no guarding, no appreciable organomega ly Ext: no gross muscle atrophy, no edema, no contractures Neuro: CN II-XI grossly intact, no focal neuro deficits Psych: Alert, oriented to situation, appropriate affect - Labs CBC & Chem 7: 12/27/18 06:31 12/27/18 06:31 Labs: Abnormal Lab Results - Last 24 Hours (Table) 12/27/18 12/27/18 Range/Units 06:31 06:31 RBC 3.76 L (3.80-5.40) m/uL Hgb 10.1 L (11.4-16.0) gm/dL Hct 32.4 L (34.0-46.0) % Plt Count 80 L (150-450) k/uL Lymphocytes # 0.8 L (1.0-4.8) k/uL BUN 34 H (7-17) mg/dL Creatinine 1.75 H (0.52-1.04) mg/dL Glucose 108 H (74-99) mg/dL Assessment and Plan Assessment: Probable pneumonia - CXR improved may have been a component of atelectasis but due to fevers and elevated WBC count recommended 5 days of abx. - trial of rocephin (patient and family believe that keflex allergy was diarrhea) and zithromax - pulm hygeine - IVF Toxic metabolic encephalopathy with underlying dementia - treatment of infection - safe and supportive environment - [facility] Fall with head trauma - CT negative - pt/ot recs - fall precautions - check orthostatic blood pressures, asked nurse to preform as not completed yet Left hip pain - x-ray and CT negative - prn motrin and ultram - pt/ot recs HTN, controlled - metoprolol - follow BP HLD - statin ASCAD - ASA, statin, BB CODE STATUS:DNR DVT prophylaxis: heparin Discussed with: Patient ,family, nursing Anticipated discharge date: 2-[address]:[facility] A total of 25 minutes was spent on the care of this complex patient more than 50% of the time was spent in counseling and care coordination. Called at 3:30 PM by nursing. Patient received her Rocephin and several hours later developed red puffiness around her eyes, some periorbital puffiness, and shortness of breath with wheezing. She also became hypertensive. Patient did have a history of Keflex ALLERGY however family initially had thought it was diarrhea. Evaluated patient. In no respiratory distress with stable oxygen saturations, hypertensive with a blood pressure of 160. No periorbital puffiness or hives noted on my exam. Patient does have upper airway wheeze. Benadryl and Solu-Medrol ordered. We'll continue to monitor. Rocephin discontinued.
[2018-12-27] MEDS: AZITHROMYCIN 500 MG TAB PO SCH ×2 (17:56→18:03)
[2018-12-27] MEDS: ACETAMINOPHEN TAB 325 MG TAB PO PRN (21:17)
[2018-12-27] MEDS: ATORVASTATIN 40 MG TAB PO SCH (21:18)
[2018-12-28] MEDS: BRIMONIDINE TARTRATE 0.2% DROPS 5 ML BTL BOTH EYES SCH ×2 (07:30→21:57)
[2018-12-28] MEDS: DORZOLAMIDE HCL 2% DROPS 10 ML BTL BOTH EYES SCH ×2 (07:31→21:57)
[2018-12-28] MEDS: LATANOPROST 0.005% OPHTH DROPS 2.5 ML BTL BOTH EYES SCH (07:34)
[2018-12-28] MEDS: POTASSIUM CHLORIDE ER 10 MEQ TAB.ER.PRT PO SCH (07:35)
[2018-12-28] MEDS: MEMANTINE 10 MG TAB PO SCH ×2 (07:35→21:56)
[2018-12-28] MEDS: ASPIRIN 81 MG PO SCH (07:35)
[2018-12-28] MEDS: METOPROLOL SUCCINATE (ER) 25 MG TAB.ER.24H PO SCH ×2 (07:35→21:56)
[2018-12-28] MEDS: PANTOPRAZOLE 40 MG TABLET PO SCH (07:35)
[2018-12-28] MEDS: SERTRALINE 100 MG TAB PO SCH (07:37)
[2018-12-28] MEDS: TRIAMTERENE-HCTZ 37.5-25MG 1 EACH TAB PO SCH (07:37)
[2018-12-28] MEDS: ACETAMINOPHEN TAB 325 MG TAB PO PRN ×3 (07:41→22:01)
[2018-12-28 08:48] LABS: HCT 34.2 % (34.0-46.0); HGB 10.4 gm/dL (11.4-16.0); Hypochromasia Marked; MCH 26.7 pg (25.0-35.0); MCHC 30.6 g/dL (31.0-37.0); MCV 87.2 fL (80.0-100.0); Mean Platelet Volume 10.3; RBC 3.92 m/uL (3.80-5.40); RDW 15.1 % (11.5-15.5); WBC 9.4 k/uL (3.8-10.6)
[2018-12-28 08:59] LABS: Platelet Count 98 k/uL (150-450)
[2018-12-28 09:00] LABS: Calcium 9.4 mg/dL (8.4-10.2); Potassium 4.3 mmol/L (3.5-5.1)
[2018-12-28] MEDS: SODIUM CHLORIDE 0.9% 1,000 ML IV SCH ×2 (10:16→21:57)
--- NOTE | 2018-12-28 13:11 | P.PN ---
Subjective Progress Note Date: 12/28/18 Principal diagnosis: Patient is an 88-year-old female with a past medical history of dementia, hypertension, dyslipidemia, coronary artery disease, rheumatoid arthritis, incontinence, and neuropathy who was brought in via EMS after being found down in her bathroom by her sister. In the emergency department she underwent an extensive evaluation. On arrival showed blood pressure 160/65 other vital signs were unremarkable. Approximately 4 hours after being in the ER she developed a rectal temperature of 102.2. She was having left hip pain. Hip and pelvic x-ray showed no acute fracture. This was followed up by CT which also did not demonstrate an acute fracture. She underwent a chest x-ray which showed a left lower lobe infiltrate. CT head and neck showed no acute abnormalities but some degenerative degenerative disc disease. Laboratory analysis showed elevated WBC at 10.8, HgB 11.3, Plt 81, and Cr 1.71 (at baseline). Lactic acid was normal at 1. She was given a dose of levaquin in the emergency department for pneumonia. Arrangements were made for admission. She was transitioned to Rocephin (family thought allergy to keflex was likely diarrhea) and zithromax. She was admitted for observation. On the morning of 12/27 she was having a slight headache, will having difficulty getting out of the chair. Patient seen and examined follow-up today, denies any wheezing reports that her difficulty breathing is improved as complaining of right hip and shoulder pain that is controlled at times with pain medication. Patient seems aware and alert today and does not appear confused but does complain of some weakness. Patient afebrile w/o leukocytosis Objective - Vital Signs Vital signs: Vital Signs Temp 97.5 F L 12/28/18 11:11 Pulse 49 L 12/28/18 11:11 Resp 16 12/28/18 11:11 BP 125/59 12/28/18 11:11 Pulse Ox 97 12/28/18 11:11 Intake & Output 12/27/18 12/28/18 12/28/18 18:59 06:59 18:59 Intake Total 650 200 Balance 650 200 Intake: Intake, IV Titration 50 Amount cefTRIAXone 1 gm In 50 Sodium Chloride 0.9% 50 ml @ 100 mls/hr IVPB Q24HR [facility] Rx#:[id number] Oral 600 200 Other: Voiding Method Bedpan Bedpan Toilet Diaper Diaper Bedpan Diaper # Voids 2 1 2 - Exam Constitutional: No acute distress, conversant, pleasant Eyes: Anicteric sclerae, moist conjunctiva, no lid-lag, PERRLA ENMT: NC/AT,Oropharynx clear, no erythema, exudates Neck:Supple, FROM, no masses, or JVD, No carotid bruits; No thyromegaly Lungs: Clear to auscultation, Clear to percussion, Normal respiratory effort, no accessory muscle use Cardiovascular: Heart regular in rate and rhythm, No murmurs, gallops, or rubs no peripheral edema Abdominal: Soft Nontender, nom distended, no guarding, no rebound or rigidity, Normoactive bowel sounds No hepatomegaly, No splenomegaly, No palpable mass No abdominal wall hernia noted Skin: Normal temperature, tone, texture, turgor, No induration No subcutaneous nodules, No rash, lesions, No ulcers Extremities:No digital cyanosis No clubbing, Pedal pulses intact and symmetrical Radial pulses intact and symmetrical Normal gait and station, No calf tenderness Psychiatric: Alert and oriented to person, place and time, Appropriate affect Intact judgement Neuro: Muscles Strength 5/5 in all 4 extremities, Sensation to light touch grossly present throughout, Cranial nerves II-XII grossly intact. No focal senso ry deficits - Labs CBC & Chem 7: 12/28/18 08:02 12/28/18 08:02 Labs: Abnormal Lab Results - Last 24 Hours (Table) 12/28/18 12/28/18 Range/Units 08:02 08:02 Hgb 10.4 L (11.4-16.0) gm/dL MCHC 30.6 L (31.0-37.0) g/dL Plt Count 98 L (150-450) k/uL BUN 31 H (7-17) mg/dL Creatinine 1.77 H (0.52-1.04) mg/dL Glucose 120 H (74-99) mg/dL Microbiology - Last 24 Hours (Table) 12/26/18 15:45 Blood Culture - Preliminary Blood No Growth after 24 hours Assessment and Plan Plan: Probable pneumonia - CXR improved may have been a component of atelectasis but due to fevers and elevated WBC count recommended 5 days of abx. - trial of rocephin (patient and family believe that keflex allergy was diarrhea) and zithromax - pulm hygeine - IVF Toxic metabolic encephalopathy with underlying dementia - treatment of infection - safe and supportive environment - [facility] Fall with head trauma - CT negative - pt/ot recs - fall precautions - check orthostatic blood pressures, asked nurse to preform as not completed yet Left hip pain - x-ray and CT negative - prn motrin and ultram - pt/ot recs HTN, controlled - metoprolol - follow BP HLD - statin ASCAD - ASA, statin, BB CODE STATUS:DNR DVT prophylaxis: heparin Discussed with: Patient ,family, nursing Anticipated discharge date: 2-[address]:SNF A total of 25 minutes was spent on the care of this complex patient more than 50% of the time was spent in counseling and care coordination.
[2018-12-28] MEDS: AZITHROMYCIN 500 MG TAB PO SCH (16:42)
[2018-12-28] MEDS: ATORVASTATIN 40 MG TAB PO SCH (21:56)
[2018-12-28 22:45] VITALS: RESP 20
[2018-12-29] MEDS: ACETAMINOPHEN TAB 325 MG TAB PO PRN ×2 (05:43→12:10)
[2018-12-29 05:47] VITALS: BP 152/60; TEMP 98
[2018-12-29 05:59] VITALS: PULSE 66
[2018-12-29] MEDS: SERTRALINE 100 MG TAB PO SCH (07:46)
[2018-12-29] MEDS: POTASSIUM CHLORIDE ER 10 MEQ TAB.ER.PRT PO SCH (07:46)
[2018-12-29] MEDS: PANTOPRAZOLE 40 MG TABLET PO SCH (07:46)
[2018-12-29] MEDS: LATANOPROST 0.005% OPHTH DROPS 2.5 ML BTL BOTH EYES SCH (07:47)
[2018-12-29] MEDS: MEMANTINE 10 MG TAB PO SCH (07:47)
[2018-12-29] MEDS: TRIAMTERENE-HCTZ 37.5-25MG 1 EACH TAB PO SCH (07:47)
[2018-12-29] MEDS: ASPIRIN 81 MG PO SCH (07:47)
[2018-12-29] MEDS: BRIMONIDINE TARTRATE 0.2% DROPS 5 ML BTL BOTH EYES SCH (07:53)
[2018-12-29] MEDS: METOPROLOL SUCCINATE (ER) 25 MG TAB.ER.24H PO SCH (07:57)
[2018-12-29] MEDS: DORZOLAMIDE HCL 2% DROPS 10 ML BTL BOTH EYES SCH (08:04)
[2018-12-29] MEDS: SODIUM CHLORIDE 0.9% 1,000 ML IV SCH (09:34)
--- NOTE | 2018-12-29 10:43 | P.DS ---
Providers Date of admission: 12/26/18 16:42 Expected date of discharge: 12/29/18 Attending physician: Ruthie Slade DO Primary care physician: Sarath Verma - Discharge Diagnosis(es) (1) CAP (community acquired pneumonia) Status: Acute (2) Atelectasis Status: Acute (3) Metabolic encephalopathy Status: Acute (4) Left hip pain Status: Acute (5) Fall Status: Acute (6) General weakness Status: Acute (7) Adverse drug reaction Status: Acute Hospital Course: Patient is an 88-year-old female with a past medical history of de mentia, hypertension, dyslipidemia, coronary artery disease, rheumatoid arthritis, incontinence, and neuropathy who was brought in via EMS after being found down in her bathroom by her sister and was subsequently admitted for pneumonia with concern for sepsis. Repeat chest x-ray. In the emergency department she underwent an extensive evaluation. On arrival showed blood pressure 160/65 other vital signs were unremarkable. Approximately 4 hours after being in the ER she developed a rectal temperature of 102.2. She was having left hip pain. Hip and pelvic x-ray showed no acute fracture. This was followed up by CT which also did not demonstrate an acute fracture. She underwent a chest x-ray which showed a left lower lobe infiltrate. CT head and neck showed no acute abnormalities but some degenerative degenerative disc disease. Laboratory analysis showed elevated WBC at 10.8, HgB 11.3, Plt 81, and Cr 1.71 (at baseline). Lactic acid was normal at 1. She was given a dose of levaquin in the emergency department for pneumonia. Arrangements were made for admission. She was transitioned to Rocephin (family thought allergy to keflex was likely diarrhea) and zithromax. She was admitted for observation. On the morning of 12/27 she was having a slight headache, will having difficulty getting out of the chair. The patient was noted to have adverse drug reaction to Keflex and began wheezing and was given doses of steroids and Benadryl. Keflex was added to her ALLERGY profile. Repeat chest x-ray was negative for any suspicious acute infiltrate. Focused exam Respiratory: Clear to auscultation bilaterally no wheezes or rhonchi Patient Condition at Discharge: Good Plan - Discharge Summary Discharge Rx Participant: No New Discharge Prescriptions: New Azithromycin 250 mg PO DAILY 2 Days #2 tab Continue Sertraline [Zoloft] 200 mg PO DAILY Rosuvastatin [Crestor] 20 mg PO HS Potassium Chloride [Klor-Con 10] 10 meq PO DAILY Aspirin EC [Ecotrin Low Dose] 81 mg PO DAILY Triamterene-Hctz 37.5-25Mg [Maxzide 37.5-25] 0.5 tab PO DAILY Lansoprazole [Prevacid] 15 mg PO DAILY Metoprolol Succinate [Toprol XL] 25 mg PO BID Memantine [Namenda] 10 mg PO BID Latanoprost/Pf [Latanoprost 0.005% Eye Drop] 1 drop BOTH EYES QAM Brinzolamide/Brimonidine Tart [Simbrinza 1%-0.2% Eye Drops] 1 drop BOTH EYES BID Albuterol Inhaler [Ventolin Hfa Inhaler] 1 - 2 puff INHALATION RT-Q6H PRN PRN Reason: Shortness Of Breath Discharge Medication List Aspirin EC [Ecotrin Low Dose] 81 mg PO DAILY 10/20/18 [History] Brinzolamide/Brimonidine Tart [Simbrinza 1%-0.2% Eye Drops] 1 drop BOTH EYES BID 10/20/18 [History] Lansoprazole [Prevacid] 15 mg PO DAILY 10/20/18 [History] Latanoprost/Pf [Latanoprost 0.005% Eye Drop] 1 drop BOTH EYES QAM 10/20/18 [History] Memantine [Namenda] 10 mg PO BID 10/20/18 [History] Metoprolol Succinate [Toprol XL] 25 mg PO BID 10/20/18 [History] Potassium Chloride [Klor-Con 10] 10 meq PO DAILY 10/20/18 [History] Rosuvastatin [Crestor] 20 mg PO HS 10/20/18 [History] Sertraline [Zoloft] 200 mg PO DAILY 10/20/18 [History] Triamterene-Hctz 37.5-25Mg [Maxzide 37.5-25] 0.5 tab PO DAILY 10/20/18 [History] Albuterol Inhaler [Ventolin Hfa Inhaler] 1 - 2 puff INHALATION RT-Q6H PRN 10/25/18 [History] Azithromycin 250 mg PO DAILY 2 Days #2 tab 08/27/19 [Rx] Follow up Appointment(s)/Referral(s): Sarath Verma MD [Primary Care Provider] - 1-2 days Discharge Disposition: TRANSFER TO SNF/ECF
--- NOTE | 2018-12-29 11:47 | XR ---
EXAMINATION TYPE: XR shoulder complete RT DATE OF EXAM: 12/29/2018 COMPARISON: NONE HISTORY: Pain TECHNIQUE: Three views are submitted. FINDINGS: The osseous structures are intact. There is no acute fracture or dislocation. Arthropathy of the AC joint. IMPRESSION: 1. No acute process.
== END 2018-12-29 13:05 | DRG 193 ==
LOC: EC 11:51 → 3NMEDONC 16:42
PROVIDERS: ADMIT Internal Medicine; ATTEND Internal Medicine
DX: J18.9 Pneumonia, unspecified organism (principal); G92 Toxic encephalopathy; S06.0X9A Concussion with loss of consciousness of unspecified duration, initial encounter; J98.11 Atelectasis; F03.90 Unspecified dementia, unspecified severity, without behavioral disturbance, psychotic disturbance, mood disturbance, and anxiety; E03.9 Hypothyroidism, unspecified; E78.5 Hyperlipidemia, unspecified; I10 Essential (primary) hypertension; I25.10 Atherosclerotic heart disease of native coronary artery without angina pectoris; I44.7 Left bundle-branch block, unspecified; M06.9 Rheumatoid arthritis, unspecified; R32 Unspecified urinary incontinence; Z66 Do not resuscitate; Z60.2 Problems related to living alone; W18.30XA Fall on same level, unspecified, initial encounter; R40.2362 Coma scale, best motor response, obeys commands, at arrival to emergency department; R40.2242 Coma scale, best verbal response, confused conversation, at arrival to emergency department; R40.2142 Coma scale, eyes open, spontaneous, at arrival to emergency department; T36.1X5A Adverse effect of cephalosporins and other beta-lactam antibiotics, initial encounter; W19.XXXA Unspecified fall, initial encounter; Y92.009 Unspecified place in unspecified non-institutional (private) residence as the place of occurrence of the external cause; Z79.82 Long term (current) use of aspirin; Z79.899 Other long term (current) drug therapy; Z87.891 Personal history of nicotine dependence; Z88.1 Allergy status to other antibiotic agents; Z90.710 Acquired absence of both cervix and uterus; Z95.1 Presence of aortocoronary bypass graft; Z88.6 Allergy status to analgesic agent; Z91.040 Latex allergy status; M50.30 Other cervical disc degeneration, unspecified cervical region; Z90.49 Acquired absence of other specified parts of digestive tract
CPT/HCPCS: 36415; 70450; 71046; 72125; 73502; 80048; 80053; 80306; 81001; 83605; 83735; 84484; 85025; 85027; 85610; 85730; 87040; 93005; 94640; 94760; 96361; 96365; 96366; 96367; 96375; 99291

== ENCOUNTER 2019-04-24 09:36 | Observation (INO) | payer MEDICARE ==
[2019-04-24] MEDS ORDERED: ASPIRIN 81 MG PO STA (09:53)
[2019-04-24] MEDS ORDERED: NITROGLYCERIN SL TABS 0.4 MG TAB SUBLINGUAL STA (10:10)
--- NOTE | 2019-04-24 10:19 | XR ---
EXAMINATION TYPE: XR chest 2V DATE OF EXAM: 04/24/2019 HISTORY: Chest Pain. REFERENCE: Previous study dated 12/27/2018. FINDINGS: There has been a midline sternotomy. The lungs are clear. Pleural space are clear. Heart size upper limits of normal. IMPRESSION: NO ACUTE INTRATHORACIC DISEASE.
[2019-04-24 10:34] LABS: Albumin 3.9 g/dL (3.5-5.0); Calcium 9.9 mg/dL (8.4-10.2); Magnesium 1.9 mg/dL (1.6-2.3); Potassium 4.7 mmol/L (3.5-5.1); Total Bilirubin 0.7 mg/dL (0.2-1.3); Total Protein 6.9 g/dL (6.3-8.2)
[2019-04-24 10:40] LABS: Anisocytosis Slight; HCT 38.4 % (34.0-46.0); Hypochromasia Moderate; MCH 26.2 pg (25.0-35.0); MCHC 31.2 g/dL (31.0-37.0); MCV 83.7 fL (80.0-100.0); Mean Platelet Volume 11.1; RBC 4.59 m/uL (3.80-5.40); RDW 16.2 % (11.5-15.5); WBC 6.1 k/uL (3.8-10.6)
[2019-04-24 10:43] LABS: Prothrombin Time 10.3 sec (9.0-12.0)
[2019-04-24 10:48] LABS: Partial Thromboplastin Time 20.8 sec (22.0-30.0)
--- NOTE | 2019-04-24 11:16 | ED ---
Chest Pain HPI - General Chief Complaint: Chest Pain Stated Complaint: Chest Pain Time Seen by Provider: 04/24/19 09:45 Source: patient, EMS, RN notes reviewed Mode of arrival: EMS Limitations: no limitations - History of Present Illness Initial Comments: 88-year-old female presents emergency Department from longterm chief complaint of congestion, chest pain. Patient states that she has had some congestion and productive cough last few days but states today she developed some chest pain. Patient had extensive cardiac history and was sent to the emergency room for evaluation. Patient states she still has some chest discomfort. Blood pressure has been elevated. Patient denies any history of congestive heart failure no leg swelling. Denies any back pain, headache or dizziness. - Related Data Home Medications Medication Instructions Recorded Confirmed Aspirin EC [Ecotrin Low Dose] 81 mg PO DAILY@0800 10/20/18 04/24/19 Brinzolamide/Brimonidine Tart 1 drop BOTH EYES BID@0800,1700 10/20/18 04/24/19 [Simbrinza 1%-0.2% Eye Drops] Lansoprazole [Prevacid] 15 mg PO DAILY@0600 10/20/18 04/24/19 Latanoprost/Pf [Latanoprost 0.005% 1 drop BOTH EYES DAILY@0800 10/20/18 04/24/19 Eye Drop] Metoprolol Succinate [Toprol XL] 25 mg PO BID@0800,1700 10/20/18 04/24/19 Potassium Chloride [Klor-Con 10] 10 meq PO DAILY@0800 10/20/18 04/24/19 Sertraline [Zoloft] 100 mg PO DAILY@0800 10/20/18 04/24/19 Triamterene-Hctz 37.5-25Mg 0.5 tab PO MOWEFR 10/20/18 04/24/19 [Maxzide 37.5-25] Acetaminophen Tab [Tylenol Tab] 650 mg PO Q4H PRN 04/24/19 04/24/19 Albuterol Nebulized [Ventolin 2.5 mg INHALATION RT-Q6H PRN 04/24/19 04/24/19 Nebulized] Atorvastatin [Lipitor] 80 mg PO TUTH 04/24/19 04/24/19 Bisacodyl [Dulcolax] 10 mg RECTAL DAILY PRN 04/24/19 04/24/19 Ferrous Sulfate [Feosol] 325 mg PO DAILY@0800 04/24/19 04/24/19 Levothyroxine Sodium [Synthroid] 25 mcg PO DAILY@0600 04/24/19 04/24/19 Magnesium Hydroxide [Milk of 2,400 mg PO DAILY PRN 04/24/19 04/24/19 Magnesia] Memantine [Namenda] 5 mg PO BID@0800,1700 04/24/19 04/24/19 Na Phos,M-B/Na Phos,Di-Ba [Fleet 133 ml RECTAL DAILY PRN 04/24/19 04/24/19 Adult] guaiFENesin [guaiFENesin Oral 200 mg PO Q4H PRN 04/24/19 04/24/19 Solution] predniSONE See Taper PO DAILY 04/24/19 04/24/19 Allergies Allergy/AdvReac Type Severity Reaction Status Date / Time latex Allergy Rash/Hives Verified 04/24/19 10:11 cephalexin [From Keflex] AdvReac Mild Diarrhea Verified 04/24/19 10:11 acetaminophen AdvReac Unknown Verified 04/24/19 10:11 [From Darvocet-N] ceftriaxone AdvReac Anaphylaxis Verified 04/24/19 10:11 Iodinated Contrast Media AdvReac Dyspnea Verified 04/24/19 10:11 [Iodinated Contrast- Oral and IV Dye] propoxyphene AdvReac Unknown Verified 04/24/19 10:11 [From Darvocet-N] Review of Systems ROS Statement: Those systems with pertinent positive or pertinent negative responses have been documented in the HPI. ROS Other: All systems not noted in ROS Statement are negative. EKG Findings - EKG Comments: EKG Findings:: EKG performed at 9:40 sinus bradycardia rate of 54 WA 162 QRS 148 QT/QTC 452/428 left axis deviation left bundle Past Medical History Past Medical History: Hypertension, Rheumatoid Arthritis (RA) Additional Past Medical History / Comment(s): hypercholestremia. hypothyroidism. Coronary artery disease. dementia. Neuropathy. Rheumatoid arthritis. Urinary incontinence History of Any Multi-Drug Resistant Organisms: None Reported Past Surgical History: Cholecystectomy, Coronary Bypass/CABG, Hysterectomy Past Anesthesia/Blood Transfusion Reactions: No Reported Reaction Past Psychological History: No Psychological Hx Reported Smoking Status: Former smoker - Past Family History Father Additional Family Medical History / Comment(s): from heart disease Mother Additional Family Medical History / Comment(s): from heart disease General Exam Limitations: no limitations General appearance: alert, in no apparent distress Head exam: Present: atraumatic, normocephalic, normal inspection Eye exam: Present: normal appearance, PERRL, EOMI. Absent: scleral icterus, conjunctival injection, periorbital swelling ENT exam: Present: normal exam, normal oropharynx, mucous membranes moist Neck exam: Present: normal inspection, full ROM. Absent: tenderness, meningismus, lymphadenopathy Respiratory exam: Present: normal lung sounds bilaterally. Absent: respiratory distress, wheezes, rales, rhonchi, stridor Cardiovascular Exam: Present: regular rate, normal rhythm, normal heart sounds. Absent: systolic murmur, diastolic murmur, rubs, gallop, clicks Course Vital Signs 04/24/19 04/24/19 09:47 09:51 Temperature 98.0 F Pulse Rate 79 Respiratory 16 16 Rate Blood Pressure 153/118 O2 Sat by Pulse 98 Oximetry Chest Pain MDM - [facility] 88-year-old female presented for chest pain. Patient has extensive cardiac history. Patient's troponin, EKG is unremarkable at this time though her symptoms did improve after nitroglycerin. Patient was given aspirin. Patient will be admitted for cardiology evaluation. Disposition Clinical Impression: Chest pain Disposition: ADMITTED IP TO THIS HOSP Condition: Fair Referrals: Sarath Verma MD [Primary Care Provider] - 1-2 days
[2019-04-24 11:26] LABS: Eosinophils # (M) 0.12 k/uL (0-0.7); Lymphocytes # (M) 0.55 k/uL (1.0-4.8); Monocytes # (M) 0.55 k/uL (0-1.0); Neutrophils # (M) 4.88 k/uL (1.3-7.7); Neutrophils % (M) 80 %; Nucleated Red Blood Cells 0 /100 WBC (0-0); Total Cells Counted 100
[2019-04-24 11:42] LABS: Platelet Count 90 k/uL (150-450)
[2019-04-24] MEDS ORDERED: NITROGLYCERIN SL TABS 0.4 MG TAB SUBLINGUAL PRN (11:51)
[2019-04-24] MEDS ORDERED: HEPARIN SODIUM,PORCINE 5,000 UNIT/ML 1 ML VIAL IV ONE (11:51)
[2019-04-24] MEDS ORDERED: HEPARIN SOD,PORK IN 0.45% NACL 25,000 UNIT in 0.45% NACL 1 250ML.BAG IV SCH (12:00)
[2019-04-24] MEDS ORDERED: NALOXONE 0.4 MG/ML 1 ML VIAL IV PRN (13:20)
[2019-04-24] MEDS ORDERED: REGADENOSON 0.4 MG/5 ML SYRINGE IV ONE (13:21)
[2019-04-24] MEDS ORDERED: ALBUTEROL NEBULIZED 2.5 MG/3 ML INHALATION PRN (13:25)
[2019-04-24] MEDS ORDERED: MAGNESIUM HYDROXIDE 2,400 MG/10 ML CUP PO PRN (13:25)
[2019-04-24] MEDS ORDERED: guaiFENesin SYRUP 100MG/5ML 200 MG/10 ML CUP PO PRN (13:25)
[2019-04-24] MEDS ORDERED: NA PHOS,M-B/NA PHOS,DI-BA 133 ML ENEMA RECTAL PRN (13:25)
[2019-04-24] MEDS ORDERED: BISACODYL 10 MG SUPP RECTAL PRN (13:25)
--- NOTE | 2019-04-24 13:32 | P.HPIM ---
History of Present Illness H&P Date: 04/24/19 Chief Complaint: Chest pain 88-year-old female presents emergency Department from retirement chief complaint of congestion, chest pain. Patient states that she has had some congestion and productive cough last few days but states today she developed some chest pain. pain felt like a pressure, was located in the lower side of the chest. She has been having some indigestion as well but denied abdominal pain, no nausea or vomiting. Over the last several days she was having some intermittent chills, no fevers. She continues to have the pain until she arrived to the emergency department when she was given some nitroglycerin which relieved it. She did have significant shortness of breath as well with it. Patient had extensive cardiac history with history of CABG in 1991. She had multiple stress tests after that which were all okay, patient had no events since his surgery, no stents or heart attacks. When she arrived to the emergency department her blood pressure was elevated. Review of Systems Complete review of system performed, pertinent positives per HPI, otherwise negative Past Medical History Past Medical History: Hypertension, Rheumatoid Arthritis (RA) Additional Past Medical History / Comment(s): hypercholestremia. hypothyroidism. Coronary artery disease. dementia. Neuropathy. Rheumatoid arthritis. Urinary incontinence History of Any Multi-Drug Resistant Organisms: None Reported Past Surgical History: Cholecystectomy, Coronary Bypass/CABG, Hysterectomy Past Anesthesia/Blood Transfusion Reactions: No Reported Reaction Past Psychological History: No Psychological Hx Reported Smoking Status: Former smoker - Past Family History Father Additional Family Medical History / Comment(s): from heart disease Mother Additional Family Medical History / Comment(s): from heart disease Medications and Allergies Home Medications Medication Instructions Recorded Confirmed Type Aspirin EC [Ecotrin Low Dose] 81 mg PO DAILY@0800 10/20/18 04/24/19 History Brinzolamide/Brimonidine Tart 1 drop BOTH EYES BID@0800,1700 10/20/18 04/24/19 History [Simbrinza 1%-0.2% Eye Drops] Lansoprazole [Prevacid] 15 mg PO DAILY@0600 10/20/18 04/24/19 History Latanoprost/Pf [Latanoprost 0.005% 1 drop BOTH EYES DAILY@0800 10/20/18 04/24/19 History Eye Drop] Metoprolol Succinate [Toprol XL] 25 mg PO BID@0800,1700 10/20/18 04/24/19 History Potassium Chloride [Klor-Con 10] 10 meq PO DAILY@0800 10/20/18 04/24/19 History Sertraline [Zoloft] 100 mg PO DAILY@0800 10/20/18 04/24/19 History Triamterene-Hctz 37.5-25Mg 0.5 tab PO MOWEFR 10/20/18 04/24/19 History [Maxzide 37.5-25] Acetaminophen Tab [Tylenol Tab] 650 mg PO Q4H PRN 04/24/19 04/24/19 History Albuterol Nebulized [Ventolin 2.5 mg INHALATION RT-Q6H PRN 04/24/19 04/24/19 History Nebulized] Atorvastatin [Lipitor] 80 mg PO TUTH 04/24/19 04/24/19 History Bisacodyl [Dulcolax] 10 mg RECTAL DAILY PRN 04/24/19 04/24/19 History Ferrous Sulfate [Feosol] 325 mg PO DAILY@0800 04/24/19 04/24/19 History Levothyroxine Sodium [Synthroid] 25 mcg PO DAILY@0600 04/24/19 04/24/19 History Magnesium Hydroxide [Milk of 2,400 mg PO DAILY PRN 04/24/19 04/24/19 History Magnesia] Memantine [Namenda] 5 mg PO BID@0800,1700 04/24/19 04/24/19 History Na Phos,M-B/Na Phos,Di-Ba [Fleet 133 ml RECTAL DAILY PRN 04/24/19 04/24/19 History Adult] guaiFENesin [guaiFENesin Oral 200 mg PO Q4H PRN 04/24/19 04/24/19 History Solution] predniSONE See Taper PO DAILY 04/24/19 04/24/19 History Allergies Allergy/AdvReac Type Severity Reaction Status Date / Time latex Allergy Rash/Hives Verified 04/24/19 10:11 cephalexin [From Keflex] AdvReac Mild Diarrhea Verified 04/24/19 10:11 acetaminophen AdvReac Unknown Verified 04/24/19 10:11 [From Darvocet-N] ceftriaxone AdvReac Anaphylaxis Verified 04/24/19 10:11 Iodinated Contrast Media AdvReac Dyspnea Verified 04/24/19 10:11 [Iodinated Contrast- Oral and IV Dye] propoxyphene AdvReac Unknown Verified 04/24/19 10:11 [From Man-N] Physical Exam Vitals: Vital Signs Temp Pulse Resp BP Pulse Ox 04/24/19 09:51 16 04/24/19 09:47 98.0 F 79 16 153/118 98 Intake and Output 04/23/19 04/24/19 04/24/19 22:59 06:59 14:59 Other: Weight 68.039 kg Constitutional: No acute distress, conversant, pleasant Eyes:Anicteric sclerae, moist conjunctiva, no lid-lag, PERRLA, ENMT: Oropharynx clear, no erythema, exudates Neck: Supple, FROM, no masses, or JVD, No carotid bruits, No thyromegaly Lungs: Clear to auscultation, Clear to percussion, Normal respiratory effort, no accessory muscle use Cardiovascular: Heart regular in rate and rhythm, No murmurs, gallops, or rubs, No peripheral edema Abdominal: Soft, Nontender, no guarding, rebound or rigidity, Normoactive bowel sounds, No hepatomegaly, No splenomegaly, No palpable mass Skin: Normal temperature, tone, texture, turgor, no induration, No subcutaneous nodules, No rash, lesions, No ulcers Extremities: No digital cyanosis, No clubbing, Pedal pulses intact and symmetrical, Radial pulses intact and symmetrical, No calf tenderness Psychiatric: Alert and oriented to person, place and time, appropriate affect, intact judgement Neuro: Muscles Strength 5/5 in all 4 extremities, Sensation to light touch gretel sly present throughout, Cranial nerves II-XII grossly intact, no focal sensory deficits Results CBC & Chem 7: 04/24/19 09:45 04/24/19 09:45 Labs: Abnormal Lab Results - Last 24 Hours (Table) 04/24/19 04/24/19 04/24/19 Range/Units 09:45 09:45 09:45 RDW 16.2 H (11.5-15.5) % Plt Count 90 L (150-450) k/uL Lymphocytes # (Manual) 0.55 L (1.0-4.8) k/uL APTT 20.8 L (22.0-30.0) sec BUN 30 H (7-17) mg/dL Creatinine 1.51 H (0.52-1.04) mg/dL Glucose 109 H (74-99) mg/dL Assessment and Plan Plan: Chest pain with history of COPD Continue aspirin and statin Admit to telemetry, observation Cycle troponins Stress test in a.m. acute bronchitis Continue prednisone taper Continue nebs Hypertension Hold metoprolol in anticipation for the stress test Resume rest of medications Monitor blood pressure Rheumatoid Arthritis (RA) Hypercholestremia. Hypothyroidism. Dementia. All stable Resume meds
[2019-04-24] MEDS: predniSONE 20 MG TAB PO SCH (16:25)
[2019-04-24] MEDS ORDERED: METOPROLOL SUCCINATE (ER) 50 MG TAB.ER.24H PO SCH (17:00)
[2019-04-24] MEDS: DORZOLAMIDE HCL 2% DROPS 10 ML BTL BOTH EYES SCH (18:11)
[2019-04-24] MEDS: MEMANTINE 5 MG TAB PO SCH (18:11)
[2019-04-24] MEDS: BRIMONIDINE TARTRATE 0.2% DROPS 5 ML BTL BOTH EYES SCH (18:14)
[2019-04-24] MEDS: ACETAMINOPHEN TAB 325 MG TAB PO PRN (20:26)
[2019-04-25] MEDS: LEVOTHYROXINE 25 MCG TAB PO SCH (05:27)
[2019-04-25] MEDS: PANTOPRAZOLE 40 MG TABLET PO SCH (05:27)
[2019-04-25 05:36] LABS: Anisocytosis Slight; Basophils % (A) 0 %; Eosinophils # (A) 0.1 k/uL (0-0.7); Eosinophils % (A) 3 %; HCT 37.9 % (34.0-46.0); HGB 11.5 gm/dL (11.4-16.0); Hypochromasia Marked; Lymphocytes % (A) 24 %; MCH 25.9 pg (25.0-35.0); MCHC 30.3 g/dL (31.0-37.0); MCV 85.6 fL (80.0-100.0); Mean Platelet Volume 10.8; Monocytes # (A) 0.3 k/uL (0-1.0); Monocytes % (A) 6 %; Neutrophils # (A) 2.5 k/uL (1.3-7.7); Neutrophils % (A) 64 %; RBC 4.43 m/uL (3.80-5.40); RDW 16.1 % (11.5-15.5); WBC 3.9 k/uL (3.8-10.6)
[2019-04-25 05:39] LABS: Platelet Count 80 k/uL (150-450)
[2019-04-25 06:48] LABS: Albumin 3.5 g/dL (3.5-5.0); Calcium 9.4 mg/dL (8.4-10.2); Magnesium 1.8 mg/dL (1.6-2.3); Phosphorus 4.1 mg/dL (2.5-4.5); Potassium 4.5 mmol/L (3.5-5.1); Total Bilirubin 0.7 mg/dL (0.2-1.3); Total Protein 6.5 g/dL (6.3-8.2)
--- NOTE | 2019-04-25 08:45 | P.CRDCN ---
History of Present Illness Consult date: 04/25/19 Requesting physician: Tiffany Srinivasan Reason for Consult (text): chest pain Chief complaint: cough, congestion, chest pain History of present illness: This is a pleasant 88-year-old female patient who [facility]. She has a history of CAD and prior CABG in the , hypertension, hyperlipidemia, hypothyroidism, peripheral neuropathy, and rheumatoid arthritis. She previously followed with Dr. Fox. She does have a history of dementia and is somewhat of a poor historian. He presented to the emergency department from [facility] with complaints of chest discomfort. The pain starts on the right side of her chest and radiates to the left and up her neck. The pain initially started at rest however she did have some discomfort this morning while getting back into bed after using the bathroom. There are no significant aggravating or relieving factors. There are no associated symptoms. She is unclear as to what symptoms she had prior to her CABG but feels that this is different. The patient says the symptoms feel similar to her GERD. EKG on admission showed sinus bradycardia with a left bundle branch block, unchanged from EKG done in December of this year. Blood pressure was elevated on admission. She was initiated on IV heparin. Chest x-ray showed no acute intrathoracic disease. Laboratory values show a hemoglobin of 11.5. Initial BUN and creatinine of 30 and 1.51 with a repeat this morning of 31 and 1.6 which appears to be around her baseline in comparison to labs drawn in September 2018. NT proBNP was normal at 303. Upon examination, patient is resting comfortably in bed. She denies further complaints of chest discomfort. She denies complaints of dizziness, lightheadedness, syncope, edema, orthopnea. She does complain of a congested cough with thick sputum. She also complains of some dyspnea on exertion that has been occurring over the last couple of months. Past Medical History Past Medical History: Coronary Artery Disease (CAD), Chest Pain / Angina, Dementia, Eye Disorder, GERD/Reflux, Hearing Disorder / Deafness, Hyperlipidemia, Hypertension, Memory Impairment, Pneumonia, Rheumatoid Arthritis (RA), Thyroid Disorder Additional Past Medical History / Comment(s): hypercholestremia. hypothyroidism. Coronary artery disease. dementia. Neuropathy. Rheumatoid arthritis. Urinary incontinence History of Any Multi-Drug Resistant Organisms: None Reported Past Surgical History: Cholecystectomy, Coronary Bypass/CABG, Hysterectomy Additional Past Surgical History / Comment(s): cabg 1995 Past Anesthesia/Blood Transfusion Reactions: No Reported Reaction Past Psychological History: No Psychological Hx Reported Smoking Status: Former smoker Past Alcohol Use History: None Reported Past Drug Use History: None Reported - Past Family History Father Additional Family Medical History / Comment(s): from heart disease Mother Additional Family Medical History / Comment(s): from heart disease Brother(s) Additional Family Medical History / Comment(s): heart disease Sister(s) Additional Family Medical History / Comment(s): heart disease with stent placement Medications and Allergies Home Medications Medication Instructions Recorded Confirmed Type Aspirin EC [Ecotrin Low Dose] 81 mg PO DAILY@0800 10/20/18 04/24/19 History Brinzolamide/Brimonidine Tart 1 drop BOTH EYES BID@0800,1700 10/20/18 04/24/19 History [Simbrinza 1%-0.2% Eye Drops] Lansoprazole [Prevacid] 15 mg PO DAILY@0600 10/20/18 04/24/19 History Latanoprost/Pf [Latanoprost 0.005% 1 drop BOTH EYES DAILY@0800 10/20/18 04/24/19 History Eye Drop] Metoprolol Succinate [Toprol XL] 25 mg PO BID@0800,1700 10/20/18 04/24/19 History Potassium Chloride [Klor-Con 10] 10 meq PO DAILY@0800 10/20/18 04/24/19 History Sertraline [Zoloft] 100 mg PO DAILY@0800 10/20/18 04/24/19 History Triamterene-Hctz 37.5-25Mg 0.5 tab PO MOWEFR 10/20/18 04/24/19 History [Maxzide 37.5-25] Acetaminophen Tab [Tylenol Tab] 650 mg PO Q4H PRN 04/24/19 04/24/19 History Albuterol Nebulized [Ventolin 2.5 mg INHALATION RT-Q6H PRN 04/24/19 04/24/19 History Nebulized] Atorvastatin [Lipitor] 80 mg PO TUTH 04/24/19 04/24/19 History Bisacodyl [Dulcolax] 10 mg RECTAL DAILY PRN 04/24/19 04/24/19 History Ferrous Sulfate [Feosol] 325 mg PO DAILY@0800 04/24/19 04/24/19 History Levothyroxine Sodium [Synthroid] 25 mcg PO DAILY@0600 04/24/19 04/24/19 History Magnesium Hydroxide [Milk of 2,400 mg PO DAILY PRN 04/24/19 04/24/19 History Magnesia] Memantine [Namenda] 5 mg PO BID@0800,1700 04/24/19 04/24/19 History Na Phos,M-B/Na Phos,Di-Ba [Fleet 133 ml RECTAL DAILY PRN 04/24/19 04/24/19 History Adult] guaiFENesin [guaiFENesin Oral 200 mg PO Q4H PRN 04/24/19 04/24/19 History Solution] predniSONE See Taper PO DAILY 04/24/19 04/24/19 History Allergies Allergy/AdvReac Type Severity Reaction Status Date / Time latex Allergy Rash/Hives Verified 04/24/19 10:11 cephalexin [From Keflex] AdvReac Mild Diarrhea Verified 04/24/19 10:11 acetaminophen AdvReac Unknown Verified 04/24/19 10:11 [From Darvocet-N] ceftriaxone AdvReac Anaphylaxis Verified 04/24/19 10:11 Iodinated Contrast Media AdvReac Dyspnea Verified 04/24/19 10:11 [Iodinated Contrast- Oral and IV Dye] propoxyphene AdvReac Unknown Verified 04/24/19 10:11 [From Darvocet-N] Physical Exam Vitals: Vital Signs Temp Pulse Pulse Resp BP BP BP 04/25/19 07:59 98.7 F 57 L 18 164/68 04/25/19 04:27 98.1 F 56 L 18 115/57 04/25/19 00:00 98.3 F 52 L 18 99/50 04/24/19 20:00 98.1 F 58 L 18 130/63 04/24/19 15:39 97.8 F 56 L 18 178/51 04/24/19 14:48 97.9 F 56 L 18 136/58 04/24/19 12:37 86 16 129/59 04/24/19 09:51 16 04/24/19 09:47 98.0 F 79 16 153/118 Pulse Ox 04/25/19 07:59 95 04/25/19 04:27 95 04/25/19 00:00 96 04/24/19 20:00 96 04/24/19 15:39 100 04/24/19 14:48 100 04/24/19 12:37 100 04/24/19 09:51 04/24/19 09:47 98 Intake and Output 04/24/19 04/25/19 04/25/19 22:59 06:59 14:59 Intake Total 64 Balance 64 Intake: Intake, IV Titration 64 Amount Heparin Sod,Pork in 0.45% 64 NaCl 25,000 unit In 0.45 % NaCl 1 250ml.bag @ 12 UNITS/KG/HR 8.165 mls/hr IV .Q24H [facility] Rx#: [id number] Other: Voiding Method Toilet Toilet # Voids 1 1 # Bowel Movements 1 Weight 68.039 kg PHYSICAL EXAMINATION: HEENT: Head is atraumatic, normocephalic. Pupils equal, round. Neck is supple. There is no elevated jugular venous pressure. No carotid bruit. HEART EXAMINATION: Heart sounds regular, S1 and S2 with a systolic murmur. CHEST EXAMINATION: Lungs are clear to auscultation. Mild right chest wall tenderness is noted on palpation. ABDOMEN: Soft, nontender. Bowel sounds are heard. No organomegaly noted. EXTREMITIES: 2+ peripheral pulses with no evidence of peripheral edema and no calf tenderness noted. NEUROLOGIC patient is awake, alert and oriented x2-3. . Results 04/25/19 05:03 04/25/19 05:03 Cardiac Enzymes 04/24/19 04/24/19 04/24/19 Range/Units 09:45 09:45 15:31 AST 16 (14-36) U/L Troponin I <0.012 <0.012 (0.000-0.034) ng/mL 04/24/19 04/25/19 Range/Units 21:45 05:03 AST 16 (14-36) U/L Troponin I <0.012 (0.000-0.034) ng/mL Coagulation 04/24/19 04/24/19 04/25/19 Range/Units 09:45 19:27 05:03 PT 10.3 (9.0-12.0) sec APTT 20.8 L 67.7 H 67.9 H (22.0-30.0) sec Lipids 04/25/19 Range/Units 05:03 Triglycerides 278 H (<150) mg/dL Cholesterol 157 (<200) mg/dL HDL Cholesterol 47 (40-60) mg/dL CBC 04/24/19 04/25/19 Range/Units 09:45 05:03 WBC 6.1 3.9 (3.8-10.6) k/uL RBC 4.59 4.43 (3.80-5.40) m/uL Hgb 12.0 11.5 (11.4-16.0) gm/dL Hct 38.4 37.9 (34.0-46.0) % Plt Count 90 L 80 L (150-450) k/uL Comprehensive Metabolic Panel 04/24/19 04/25/19 Range/Units 09:45 05:03 Sodium 140 141 (137-145) mmol/L Potassium 4.7 4.5 (3.5-5.1) mmol/L Chloride 106 107 (98-107) mmol/L Carbon Dioxide 26 24 (22-30) mmol/L BUN 30 H 31 H (7-17) mg/dL Creatinine 1.51 H 1.60 H (0.52-1.04) mg/dL Glucose 109 H 119 H (74-99) mg/dL Calcium 9.9 9.4 (8.4-10.2) mg/dL AST 16 16 (14-36) U/L ALT 9 9 (4-34) U/L Alkaline Phosphatase 109 89 (38-126) U/L Total Protein 6.9 6.5 (6.3-8.2) g/dL Albumin 3.9 3.5 (3.5-5.0) g/dL Current Medications Generic Name Dose Route Start Last Admin Trade Name Freq PRN Reason Stop Dose Admin Acetaminophen 650 mg 04/24/19 13:25 04/24/19 20:26 Tylenol Tab PO 650 mg Q4H PRN Administration Pain or Fever > 100.5 Albuterol Sulfate 2.5 mg 04/24/19 13:25 Ventolin Nebulized INHALATION RT-Q6H PRN Shortness Of Breath Aminophylline 100 mg 04/26/19 06:00 Aminophylline IV 04/27/19 06:01 ONCE PRN Patient Response Aspirin 81 mg 04/25/19 08:00 Aspirin PO DAILY@0800 [facility] Atorvastatin Calcium 80 mg 04/27/19 09:00 Lipitor PO TUTH [facility] Bisacodyl 10 mg 04/24/19 13:25 Dulcolax RECTAL DAILY PRN Constipation Brimonidine Tartrate 1 drops 04/24/19 17:00 04/24/19 18:14 Alphagan P 0.2% Ophth Soln BOTH EYES 1 drops BID@0800,1700 [facility] Administration Caffeine Citrate 60 mg 04/26/19 06:00 Cafcit Inj IV 04/27/19 06:00 ONCE PRN Patient Response Dorzolamide HCl 1 drops 04/24/19 17:00 04/24/19 18:11 Trusopt BOTH EYES 1 drops BID@0800,1700 [facility] Administration Ferrous Sulfate 325 mg 04/25/19 08:00 Feosol PO DAILY@0800 [facility] Guaifenesin 200 mg 04/24/19 13:25 Robitussin PO Q4H PRN Cough Heparin Sodium/Sodium Chloride 250 mls @ 8.165 mls/hr 04/24/19 12:00 04/24/19 12:33 25,000 unit/ Sodium Chloride IV 12 units/kg/hr .Q24H [facility] 8.165 mls/hr Administration Protocol 12 UNITS/KG/HR Dipyridamole 39 mg/ Sodium 50 mls @ 750 mls/hr 04/26/19 06:00 Chloride IV 04/26/19 06:03 ONCE ONE Latanoprost 1 drops 04/25/19 08:00 Xalatan 0.005% BOTH EYES DAILY@0800 [facility] Levothyroxine Sodium 25 mcg 04/25/19 06:00 04/25/19 05:27 Synthroid PO 25 mcg DAILY@0600 [facility] Administration Magnesium Hydroxide 2,400 mg 04/24/19 13:25 Milk Of Magnesia PO DAILY PRN Constipation Memantine 5 mg 04/24/19 17:00 04/24/19 18:11 Namenda PO 5 mg BID@0800,1700 [facility] Administration Naloxone HCl 0.2 mg 04/24/19 13:20 Narcan IV Q2M PRN Opioid Reversal Nitroglycerin 0.4 mg 04/24/19 11:51 Nitrostat SUBLINGUAL Q5M PRN Chest Pain Pantoprazole Sodium 40 mg 04/25/19 06:00 04/25/19 05:27 Protonix PO 40 mg DAILY@0600 [facility] Administration Potassium Chloride 10 meq 04/25/19 08:00 K-Dur 10 PO DAILY@0800 [facility] Prednisone 20 mg 04/24/19 13:45 04/24/19 16:25 PO Not Given DAILY ANTONY Sertraline HCl 100 mg 04/25/19 08:00 Zoloft PO DAILY@0800 [facility] Sodium Biphosphate/Sodium Phosphate 133 ml 04/24/19 13:25 Fleet Adult RECTAL DAILY PRN Constipation Triamterene/HCTZ 0.5 each 04/26/19 09:00 Maxzide-25 PO MoWeFr@0900 [facility] Intake and Output 04/24/19 04/25/19 04/25/19 22:59 06:59 14:59 Intake Total 64 Balance 64 Intake: Intake, IV Titration 64 Amount Heparin Sod,Pork in 0.45% 64 NaCl 25,000 unit In 0.45 % NaCl 1 250ml.bag @ 12 UNITS/KG/HR 8.165 mls/hr IV .Q24H [facility] Rx#: [id number] Other: Voiding Method Toilet Toilet # Voids 1 1 # Bowel Movements 1 Weight 68.039 kg 04/25/19 05:03 04/25/19 05:03 EKG Interpretations (text) Sinus bradycardia with left bundle branch block Assessment and Plan Assessment: #1 symptoms of chest pain, troponins negative 3, no changes noted on EKG with underlying left bundle branch block #2 CAD with prior CABG in the 1990s #3 hypertension #4 hyperlipidemia #5 chronic renal failure #6 dementia Plan: From cardiology's perspective, we will discontinue IV heparin. We will obtain a 2-D echo with Doppler. Add oral nitrate. Increase patient's activity. We will cancel outpatient stress test that was ordered by primary. Due to patient's overall status including poor renal function, advanced age and dementia patient is not a good candidate for aggressive cardiac workup. We will maximize medical therapy. Further recommendations to be made depending on patient's clinical course and diagnostic findings. [employer] note has been reviewed, I agree with a documented findings and plan of care. Patient was seen and examined.
[2019-04-25] MEDS ORDERED: ASPIRIN 325 MG TAB PO SCH (09:00)
[2019-04-25] MEDS ORDERED: METOPROLOL SUCCINATE (ER) 25 MG TAB.ER.24H PO STA (09:27)
[2019-04-25] MEDS: ASPIRIN 81 MG PO SCH (09:47)
[2019-04-25] MEDS: predniSONE 20 MG TAB PO SCH (09:47)
[2019-04-25] MEDS: DORZOLAMIDE HCL 2% DROPS 10 ML BTL BOTH EYES SCH ×2 (09:47→17:59)
[2019-04-25] MEDS: FERROUS SULFATE 325 MG TAB PO SCH (09:47)
[2019-04-25] MEDS: POTASSIUM CHLORIDE ER 10 MEQ TAB.ER.PRT PO SCH (09:47)
[2019-04-25] MEDS: BRIMONIDINE TARTRATE 0.2% DROPS 5 ML BTL BOTH EYES SCH ×2 (09:48→17:57)
[2019-04-25] MEDS: LATANOPROST 0.005% OPHTH DROPS 2.5 ML BTL BOTH EYES SCH (09:48)
[2019-04-25] MEDS: SERTRALINE 100 MG TAB PO SCH (09:48)
[2019-04-25] MEDS: MEMANTINE 5 MG TAB PO SCH ×2 (09:48→17:58)
[2019-04-25] MEDS: ISOSORBIDE MONONITRATE ER 30 MG TAB.ER.24H PO SCH (09:53)
[2019-04-25] MEDS ORDERED: MAG HYDROX/AL HYDROX/SIMETH 30 ML CUP PO PRN (13:52)
[2019-04-25] MEDS ORDERED: NITROGLYCERIN SL TABS 0.4 MG TAB SUBLINGUAL PRN (13:52)
--- NOTE | 2019-04-25 13:56 | P.PN ---
Subjective Progress Note Date: 04/25/19 Principal diagnosis: chest pain patient still having intermittent episodes of chest discomfort. She is not sure whether this is related to indigestion or gas. No shortness of breath. Patient felt generally weak this morning when she was using the bathroom and she was about to fall. Objective - Vital Signs Vital signs: Vital Signs Temp 97.5 F L 04/25/19 11:15 Pulse 71 04/25/19 11:15 Resp 18 04/25/19 07:59 BP 143/71 04/25/19 11:15 Pulse Ox 98 04/25/19 11:15 Intake & Output 04/24/19 04/25/19 04/25/19 18:59 06:59 18:59 Intake Total 64 Balance 64 Weight 68.039 kg Intake: Intake, IV Titration 64 Amount Heparin Sod,Pork in 0.45% 64 NaCl 25,000 unit In 0.45 % NaCl 1 250ml.bag @ 12 UNITS/KG/HR 8.165 mls/hr IV .Q24H [facility] Rx#: [id number] Other: Voiding Method Toilet Toilet Toilet # Voids 1 # Bowel Movements 1 - Labs CBC & Chem 7: 04/25/19 05:03 04/25/19 05:03 Labs: Abnormal Lab Results - Last 24 Hours (Table) 04/24/19 04/25/19 04/25/19 Range/Units 19:27 05:03 05:03 MCHC 30.3 L (31.0-37.0) g/dL RDW 16.1 H (11.5-15.5) % Plt Count 80 L (150-450) k/uL APTT 67.7 H (22.0-30.0) sec BUN 31 H (7-17) mg/dL Creatinine 1.60 H (0.52-1.04) mg/dL Glucose 119 H (74-99) mg/dL Triglycerides 278 H (<150) mg/dL 04/25/19 Range/Units 05:03 MCHC (31.0-37.0) g/dL RDW (11.5-15.5) % Plt Count (150-450) k/uL APTT 67.9 H (22.0-30.0) sec BUN (7-17) mg/dL Creatinine (0.52-1.04) mg/dL Glucose (74-99) mg/dL Triglycerides (<150) mg/dL Assessment and Plan Plan: Chest pain with remote history of CAD Continue aspirin and statin Troponins negative appreciate cardiology input, no need for stress test at this point as patient is not a candidate for aggressive therapy with heart catheterization. Recommendation is to optimize medical therapy. Imdur added to her regimen. Nitroglycerin as needed for chest pain. Please make sure to prescribe this as part of her discharge medications as daughter emphasized on it before she goes to the residential. Awaiting echocardiogram, recommended by cardio. Try Maalox when necessary as this could be secondary to stomach upset. Acute bronchitis Continue prednisone taper Continue nebs Hypertension Hold metoprolol in anticipation for the stress test Resume rest of medications Monitor blood pressure Rheumatoid Arthritis (RA) Hypercholestremia. Hypothyroidism. Dementia. All stable Resume meds
[2019-04-25] MEDS: ACETAMINOPHEN TAB 325 MG TAB PO PRN (20:41)
[2019-04-26] MEDS: PANTOPRAZOLE 40 MG TABLET PO SCH (05:46)
[2019-04-26] MEDS: LEVOTHYROXINE 25 MCG TAB PO SCH (05:46)
[2019-04-26] MEDS ORDERED: SODIUM CHLORIDE 0.9% IV ONE (06:00)
[2019-04-26] MEDS ORDERED: DIPYRIDAMOLE IV ONE (06:00)
[2019-04-26] MEDS ORDERED: AMINOPHYLLINE 500 MG/20 ML VIAL IV PRN (06:00)
[2019-04-26] MEDS ORDERED: CAFFEINE CITRATE 60 MG/3 ML VIAL IV PRN (06:00)
[2019-04-26] MEDS ORDERED: TRIAMTERENE-HCTZ 37.5-25MG 1 EACH TAB PO SCH (09:00)
[2019-04-26] MEDS: POTASSIUM CHLORIDE ER 10 MEQ TAB.ER.PRT PO SCH (09:43)
[2019-04-26] MEDS: MEMANTINE 5 MG TAB PO SCH (09:43)
[2019-04-26] MEDS: FERROUS SULFATE 325 MG TAB PO SCH (09:43)
[2019-04-26] MEDS: SERTRALINE 100 MG TAB PO SCH (09:43)
[2019-04-26] MEDS: predniSONE 20 MG TAB PO SCH (09:43)
[2019-04-26] MEDS: ISOSORBIDE MONONITRATE ER 30 MG TAB.ER.24H PO SCH (09:43)
[2019-04-26] MEDS: ASPIRIN 81 MG PO SCH (09:43)
[2019-04-26] MEDS: DORZOLAMIDE HCL 2% DROPS 10 ML BTL BOTH EYES SCH (09:44)
[2019-04-26] MEDS: BRIMONIDINE TARTRATE 0.2% DROPS 5 ML BTL BOTH EYES SCH (09:44)
[2019-04-26] MEDS: LATANOPROST 0.005% OPHTH DROPS 2.5 ML BTL BOTH EYES SCH (09:45)
--- NOTE | 2019-04-26 09:54 | PN ---
PROGRESS NOTE Mrs. Varghese is an 88-year-old female with known history of coronary artery disease, status post coronary artery bypass grafting who presented with right-sided chest discomfort. She is feeling better this morning. She has no further symptoms of chest pain. Her breathing is stable. She denies any dizziness or palpitation. She denies any nausea. No cough. She continues to be in sinus mechanism. She continues to be at this time on aspirin once a day, Lipitor 80 mg daily, isosorbide mononitrate 30 mg daily, Namenda 5 mg twice a day, metoprolol succinate 25 mg daily, and Protonix. She is also on prednisone and triamterene hydrochlorothiazide. PHYSICAL EXAMINATION: Blood pressure 135/50 with the heart rate in the 50s. LUNGS: Clear. HEART: Regular rate and rhythm. S1, S2. No S3 with a systolic murmur. No diastolic murmur. No rub. ABDOMEN: Soft, nontender. EXTREMITIES: No edema. IMPRESSION: 1. Chest discomfort, has atypical features for ischemic heart disease probably noncardiac. 2. History of coronary artery disease, status post coronary artery bypass grafting. 3. History of hypertension. 4. Chronic kidney disease. RECOMMENDATION: We will obtain echocardiogram with Doppler. If there is no significant abnormality then I would expect she should be able to be discharged home today and followed as an outpatient. MMODL / IJN: [id number] /
[2019-04-26 11:53] VITALS: BP 143/66; PULSE 53; RESP 18; TEMP 97.5
--- NOTE | 2019-04-26 13:26 | P.DS ---
Providers Date of admission: 04/24/19 12:18 Expected date of discharge: 04/26/19 Attending physician: Tiffany Srinivasan MD Consults: 04/24/19 11:51 Consult Physician Urgent Consulting Provider: Martha Pearson Consult Reason/Comments: chest pain Do you want consulting provider notified?: Yes Primary care physician: Sarath Verma Hospital Course: discharge diagnoses chest pain Acute bronchitis CAD with history of CABG Essential hypertension Hyperlipidemia Chronic renal failure Dementia Hospital course The patient is a 88-year-old female was admitted for chest pain with need to rule out ACS after she presented with chest discomfort. Workup including her troponins were negative 3, there were no EKG changes with suggestion of acute ischemia, EKG showed some underlying left bundle branch block which was unchanged from December of this year, NT proBNP was 303, chest x- ray showed no acute intrathoracic disease. Echocardiogram was ordered and results are pending, patient was evaluated by cardiology determined that the discomfort was reproducible with some right-sided chest wall tenderness, options were discussed with the patient and her daughter and given the patient's overall dementia underlying renal status with chronic kidney disease and given the patient's advanced age it was decided to go with continuing medical management rather than aggressive cardiac workup. The patient was started on Imdur and nitroglycerin. She was subsequently discharged home in stable condition and told to follow-up with her PCP. This discharge process took approximately 30 minutes Focused exam Cardiovascular : regular rate and rhythm with a holosystolic murmur Patient Condition at Discharge: Fair Plan - Discharge Summary Discharge Rx Participant: No New Discharge Prescriptions: No Action Sertraline [Zoloft] 100 mg PO DAILY@0800 Potassium Chloride [Klor-Con 10] 10 meq PO DAILY@0800 Aspirin EC [Ecotrin Low Dose] 81 mg PO DAILY@0800 Triamterene-Hctz 37.5-25Mg [Maxzide 37.5-25] 0.5 tab PO MOWEFR Lansoprazole [Prevacid] 15 mg PO DAILY@0600 Metoprolol Succinate [Toprol XL] 25 mg PO BID@0800,1700 Latanoprost/Pf [Latanoprost 0.005% Eye Drop] 1 drop BOTH EYES DAILY@0800 Brinzolamide/Brimonidine Tart [Simbrinza 1%-0.2% Eye Drops] 1 drop BOTH EYES BID@0800,1700 Acetaminophen Tab [Tylenol Tab] 650 mg PO Q4H PRN PRN Reason: Pain Or Fever > 100.5 guaiFENesin [guaiFENesin Oral Solution] 200 mg PO Q4H PRN PRN Reason: Cough Magnesium Hydroxide [Milk of Magnesia] 2,400 mg PO DAILY PRN PRN Reason: Constipation Na Phos,M-B/Na Phos,Di-Ba [Fleet Adult] 133 ml RECTAL DAILY PRN PRN Reason: Constipation Bisacodyl [Dulcolax] 10 mg RECTAL DAILY PRN PRN Reason: Constipation Albuterol Nebulized [Ventolin Nebulized] 2.5 mg INHALATION RT-Q6H PRN PRN Reason: Shortness Of Breath Memantine [Namenda] 5 mg PO BID@0800,1700 predniSONE See Taper PO DAILY Levothyroxine Sodium [Synthroid] 25 mcg PO DAILY@0600 Ferrous Sulfate [Feosol] 325 mg PO DAILY@0800 Atorvastatin [Lipitor] 80 mg PO TUTH Discharge Medication List Aspirin EC [Ecotrin Low Dose] 81 mg PO DAILY@0800 10/20/18 [History] Brinzolamide/Brimonidine Tart [Simbrinza 1%-0.2% Eye Drops] 1 drop BOTH EYES BID@0800,1700 10/20/18 [History] Lansoprazole [Prevacid] 15 mg PO DAILY@0600 10/20/18 [History] Latanoprost/Pf [Latanoprost 0.005% Eye Drop] 1 drop BOTH EYES DAILY@0800 10/20/18 [History] Metoprolol Succinate [Toprol XL] 25 mg PO BID@0800,1700 10/20/18 [History] Potassium Chloride [Klor-Con 10] 10 meq PO DAILY@0800 10/20/18 [History] Sertraline [Zoloft] 100 mg PO DAILY@0800 10/20/18 [History] Triamterene-Hctz 37.5-25Mg [Maxzide 37.5-25] 0.5 tab PO MOWEFR 10/20/18 [History] Acetaminophen Tab [Tylenol Tab] 650 mg PO Q4H PRN 04/24/19 [History] Albuterol Nebulized [Ventolin Nebulized] 2.5 mg INHALATION RT-Q6H PRN 04/24/19 [History] Atorvastatin [Lipitor] 80 mg PO TUTH 04/24/19 [History] Bisacodyl [Dulcolax] 10 mg RECTAL DAILY PRN 04/24/19 [History] Ferrous Sulfate [Feosol] 325 mg PO DAILY@0800 04/24/19 [History] Levothyroxine Sodium [Synthroid] 25 mcg PO DAILY@0600 04/24/19 [History] Magnesium Hydroxide [Milk of Magnesia] 2,400 mg PO DAILY PRN 04/24/19 [History] Memantine [Namenda] 5 mg PO BID@0800,1700 04/24/19 [History] Na Phos,M-B/Na Phos,Di-Ba [Fleet Adult] 133 ml RECTAL DAILY PRN 04/24/19 [History] guaiFENesin [guaiFENesin Oral Solution] 200 mg PO Q4H PRN 04/24/19 [History] predniSONE See Taper PO DAILY 04/24/19 [History] Follow up Appointment(s)/Referral(s): Sarath Verma MD [Primary Care Provider] - 1-2 days Sameera Lambert MD [STAFF PHYSICIAN] - 05/11/19 9:30 am
[2019-04-27] MEDS ORDERED: METOPROLOL SUCCINATE (ER) 25 MG TAB.ER.24H PO SCH (09:00)
[2019-04-27] MEDS ORDERED: ATORVASTATIN 80 MG TAB PO SCH (09:00)
--- NOTE | 2019-04-27 11:28 | ECHOF ---
Referral Reason: MEASUREMENTS -------- HEIGHT: 160.0 cm WEIGHT: 68.0 kg BP: RVIDd: 3.0 cm (< 3.3) IVSd: 1.3 cm (0.6 - 1.1) LVIDd: 3.6 cm (3.9 - 5.3) LVPWd: 1.2 cm (0.6 - 1.1) IVSs: 1.4 cm LVIDs: 2.9 cm LVPWs: 1.2 cm LA Diam: 4.0 cm (2.7 - 3.8) LAESV Index (A-L): 20.26 ml/m Ao Diam: 2.6 cm (2.0 - 3.7) AV Cusp: 1.5 cm (1.5 - 2.6) LA Diam: 3.9 cm (2.7 - 3.8) MV EXCURSION: 13.818 mm (> 18.000) MV EF SLOPE: 66 mm/s (70 - 150) EPSS: 0.3 cm MV E Jonathan: 0.67 m/s MV DecT: 209 ms MV A Jonathan: 0.81 m/s MV E/A Ratio: 0.83 RAP: 5.00 mmHg RVSP: 12.51 mmHg FINDINGS -------- Sinus rhythm. This was a technically adequate study. The left ventricular size is normal. There is mild concentric left ventricular hypertrophy. Overa ll left ventricular systolic function is normal with, an EF between 55 - 60 %. The right ventricle is normal in size. The left atrial size is normal. The right atrial size is normal. There is mild aortic valve sclerosis. There is no evidence of aortic regurgitation. Mild mitral annular calcification present. Mild mitral regurgitation is present. Mild tricuspid regurgitation present. Right ventricular systolic pressure is normal at < 35 mmHg. The right ventricular systolic pressure, as measured by Doppler, is 12.51mmHg. There is no pulmonic regurgitation present. The aortic root size is normal. There is no pericardial effusion. CONCLUSIONS -------- 1. Sinus rhythm. 2. This was a technically adequate study. 3. The left ventricular size is normal. 4. There is mild concentric left ventricular hypertrophy. 5. Overall left ventricular systolic function is normal with, an EF between 55 - 60 %. 6. The left atrial size is normal. 7. There is mild aortic valve sclerosis. 8. Mild mitral annular calcification present. 9. Mild mitral regurgitation is present. 10. Mild tricuspid regurgitation present. 11. Right ventricular systolic pressure is normal at < 35 mmHg. 12. There is no pulmonic regurgitation present. 13. The aortic root size is normal. 14. There is no pericardial effusion. SENIOR CONTROLS ANALYST: Debbie Brock RDCS
== END 2019-04-26 15:16 ==
LOC: EC 09:36 → 1SOBS 12:18
PROVIDERS: ADMIT Internal Medicine; ATTEND Internal Medicine
DX: R07.89 Other chest pain (principal); J20.9 Acute bronchitis, unspecified; J44.0 Chronic obstructive pulmonary disease with (acute) lower respiratory infection; E03.9 Hypothyroidism, unspecified; E78.5 Hyperlipidemia, unspecified; F03.90 Unspecified dementia, unspecified severity, without behavioral disturbance, psychotic disturbance, mood disturbance, and anxiety; H91.90 Unspecified hearing loss, unspecified ear; I12.9 Hypertensive chronic kidney disease with stage 1 through stage 4 chronic kidney disease, or unspecified chronic kidney disease; I25.10 Atherosclerotic heart disease of native coronary artery without angina pectoris; K21.9 Gastro-esophageal reflux disease without esophagitis; M06.9 Rheumatoid arthritis, unspecified; N18.9 Chronic kidney disease, unspecified; Z87.891 Personal history of nicotine dependence; Z90.710 Acquired absence of both cervix and uterus; Z95.1 Presence of aortocoronary bypass graft; I44.7 Left bundle-branch block, unspecified; Z91.041 Radiographic dye allergy status; R32 Unspecified urinary incontinence; Z90.49 Acquired absence of other specified parts of digestive tract; Z82.49 Family history of ischemic heart disease and other diseases of the circulatory system; G62.9 Polyneuropathy, unspecified; Z88.5 Allergy status to narcotic agent; Z79.890 Hormone replacement therapy; Z79.899 Other long term (current) drug therapy; Z79.82 Long term (current) use of aspirin; Z91.040 Latex allergy status; Z88.1 Allergy status to other antibiotic agents
CPT/HCPCS: 96366 ×3; 96376; 96365; 99285; 36415; 93005 ×2; 93306; 97162; 83880; 80061; 80053 ×2; 83735 ×2; 84100; 84484; 85025 ×2; 85610; 85730 ×3; 71046; G0378 ×3; J1644 ×2; J7512 ×2